=== PATIENT | female | born 1935 | race Caucasian/White ===

== ENCOUNTER 2016-07-06 20:06 | Emergency (ER) | payer MEDICARE, MEDICAID ==
[~2016-07-06] VITALS: Ht 152.4 cm; Wt 95.5 kg
[2016-07-06 20:19] VITALS: BP 141/69; PULSE 90; RESP 23; O2SAT 95
--- NOTE | 2016-07-06 20:27 | ED.REPORT ---
HPI-Chest Pain 40 and Over Date of Service Jul 06, 2016 ED Provider: JustynJulio Lorri An 81 year old female with a history of thyroid disease, diabetes, TIAx2, CAD, and GERD presents to the ED via EMS complaining of elevated heart rate and decreased oxygen level. Associated symptoms include chest pain, SOB, cough, headache, numbness and dizziness onset about an hour ago. She denies any diaphoresis, nausea, pain in arms, or leg swelling. She reports that her blood pressure was 118/63 at her last check-up. She has visited an ED in [place] multiple times where she was evaluated for similar symptoms, never being diagnosed with Afib. She claims that these symptoms seem to happen a lot. She recently broke her ankle, and [place] to the area in [place] under ak chin of doctor to live with family. She reports no recent fever or chills, but she is recovering from bronchitis. She has baseline diaphoresis at night, and baseline diarrhea. She reports no heart stents or other history of pertinent heart conditions. She does not take O2 at home, but is able to measure her oxygen level at home which can sometimes go to 92 . She had an a balloon angioplasty performed 20-25 years ago. She currently takes aspirin, but no other blood thinners and does not take any medication for GERD. She reports no allergies to any medications. She denies any history of COPD or asthma. She has an allergy to iodine. She reports that SOB has decreased a little bit since she has been in the ED. Nursing Notes Stated Complaint: CHEST PAIN Chief Complaint: Chest Pain Nursing Notes Reviewed: Yes Allergies: Coded Allergies: Fish Containing Products (Verified Allergy, Severe, 07/06/16) Penicillins (Verified Allergy, Severe, 07/06/16) iodine (Verified Allergy, Severe, 07/06/16) chlorpromazine (Verified Allergy, Intermediate, 07/06/16) morphine (Verified Allergy, Intermediate, 07/06/16) procaine (Verified Allergy, Intermediate, 07/06/16) aspirin (Verified Adverse Reaction, Unknown, GI upset, 07/06/16) General Time Seen by MD: 20:07 Chief Complaint Other (elevated heart rate) Hx Obtained From: Patient, EMS Arrived By: Ambulance Sudden in Onset?: Yes Onset Occurred: 1 - 4 hours ago Symptom Duration: Since onset Severity: Current: Mild Severity: Maximum: Moderate Recent Healthcare: No recent doctor visit Similar Sx Previous: Yes Past Medical History Past Medical History Dr. Campos is her PCP. thyroid disease. TIAx2 Reports: Coronary artery disease, Diabetes mellitus, Denies: COPD Past Surgical History none reported. Ambulatory Status Independent Review of Systems Review of Systems Note: elevated heart rate. decreased oxygen level. Denies pain in arms. Denies leg swelling. Respiratory: Reports: Non-productive cough, Shortness of breath Cardiovascular: Reports: Chest pain GI: Denies: Nausea Skin: Denies Diaphoresis Neurologic: Reports: Dizziness, Headache, Numbness Complete sys rev & neg: except as marked. Physical Exam Physical Exam Notes: Initial Vital Signs Vital Signs (First) Date Time Temp Pulse Resp B/P Pulse Ox O2 Delivery O2 Flow Rate FiO2 07/06/16 20:19 37.5 90 23 141/69 95 Room Air Initial VS: Reviewed General/Constitutional: Awake, Alert Respiratory / Chest: Atraumatic, Breath sounds NL, Breath sounds = bilat, No respiratory distress Cardiovascular: Heart rate NL, Regular rhythm, Heart sounds NL, No murmurs Abdomen: Atraumatic, Soft Neck: Atraumatic, Full range of motion Back: Atraumatic, Full range of motion Lower Extremity / Pelvis / MS: Atraumatic Patient has a boot on right lower extremity. No lower extremity edema. No tenderness, erythema, or warmth of lower extremities. Skin: Atraumatic, Warm, Dry Neurologic: Oriented X3, Speech NL Head / Eyes: Atraumatic, Normocephalic, PERRL, EOMI ENT: Atraumatic, Mucous membranes moist Upper Extremity / MS: Atraumatic, Full range of motion Wrist / Hand: Atraumatic, Full range of motion No foot swelling, no tight bands, no erythema, no warmth. Interpretation & Diagnostics Lab Results Interpretation Result Diagram: 07/06/16202407/06/162024 Test 07/06/16 20:25 07/06/16 22:30 White Blood Count 6.7th/mm3 (3.8-10.1) Red Blood Count 4.10mil/mm3 (3.90-5.20) Hemoglobin 11.7g/dL (12.0-15.6) Hematocrit 36.0% (35.0-46.0) Mean Corpuscular Volume 87.8fL (81-100) Mean Corpuscular Hemoglobin 28.5pg (27.0-35.0) Mean Corpuscular Hemoglobin Concent 32.5% (32.0-37.0) Red Cell Distribution Width 14.9% (12.3-15.4) Platelet Count 206bil/L (150-400) Neutrophils (%) (Auto) 56.6% (40-74) Lymphocytes (%) (Auto) 30.9% (14-46) Monocytes (%) (Auto) 9.6% (4-12) Eosinophils (%) (Auto) 2.7% (0-5) Basophils (%) (Auto) 0.1% (0-3) D-Dimer 2.6mg/L (<0.50) Hold Blue Top Tube Received (Received) Sodium Level 138mEq/L (134-144) Potassium Level 3.7mEq/L (3.5-5.2) Chloride Level 102mEq/L (97-108) Carbon Dioxide Level 20mmol/L (18-29) Blood Urea Nitrogen 21mg/dL (8-27) Creatinine 1.03mg/dL (0.57-1.00) Estimat Glomerular Filtration Rate 73mL/min (>59) Glucose Level 213mg/dL (60-99) Calcium Level 8.8mg/dL (8.5-10.1) Magnesium Level 1.6mg/dL (1.6-2.6) Total Bilirubin 0.3mg/dL (0.0-1.2) Aspartate Amino Transf (AST/SGOT) 14U/L (0-50) Alanine Aminotransferase (ALT/SGPT) 9U/L (0-32) Alkaline Phosphatase 55U/L (25-165) Total Protein 6.3g/dL (6.4-8.4) Albumin 3.5g/dL (3.4-5.0) Hold [place] Top Tube Received (Received) Troponin T 0.010ug/L (0.0-0.011) ECG Interpretation ECG Interpretation: Rate is 93. Sinus rhythm. Prolonged WA interval. LVH. Anterior P waves. No ST changes. Time: 20:22 Interpreted by: ED physician Re-Eval/Medical Decision Source of Hx: Old records, EMS Time of Eval: 23:22 Re-Evaluation/Progress Note: Rechecked patient. Explained test results, diagnosis and plan for discharge. Patient understands and agrees with the plan. Counseled Regarding: Diagnosis, Lab results, Need for follow-up, When/why to return to ED Discharge & Departure Primary Impression: Chest pain Chest pain type: unspecified Qualified Code: R07.9 - Chest pain, unspecified Ruled Out: Acute coronary syndrome, Pneumonia Disposition: Home Discharge Condition All VS Reviewed: Yes Condition: Stable Patient Instructions: Chest Pain (ED) Additional Instructions: Thank you for an trusting us with your care. Your emergency room evaluation today included an interview, physical exam, EKG, labs, and x-ray. There were no dangerous findings identified. You have not had a heart attack tonight. I do not see any evidence of lung infection or pneumonia. Your oxygen is normal and your heart has been normal on our monitors during your entire ER visit. I would like you to follow up with your primary care provider within the next week or two for reevaluation. I would recommend a stress test as an outpatient to look further at your heart given your diabetes and heart history. Please return to the ER if you develop any new or worsening symptoms Referrals: Wellington Campos DO (PCP) Nu Attestation Portions of this note were transcribed by Randolph Welch. I, Dr. Alejandra personally performed the history, physical exam and medical decision-making; I reviewed and confirmed the accuracy of the information in the transcribed note. Signed by: Nu Caballero, 07/06/2016 2327. copies to: Wellington Campos Gary R DO Jul 06, 2016 20:27 Randolph Welch Jul 06, 2016 21:26
[2016-07-06 20:35] LABS: BASOPHILS % (AUTO) 0.1 % (0-3); EOSINOPHILS % (AUTO) 2.7 % (0-5); MONOCYTES % (AUTO) 9.6 % (4-12); Mean Corpuscular Hemoglobin 28.5 pg (27.0-35.0); Mean Corpuscular Volume 87.8 fL (81-100); NEUTROPHILS % (AUTO) 56.6 % (40-74); Platelet Count 206 bil/L (150-400)
[2016-07-06 21:02] LABS: TROPONIN T < 0.010 ug/L (0.0-0.011)
[2016-07-06 21:11] LABS: Magnesium 1.6 mg/dL (1.6-2.6)
--- NOTE | 2016-07-06 21:18 | DRSVH ---
PROCEDURE: X-RAY CHEST ONE VIEW, PORTABLE ([id number]) INDICATIONS: chest pain TECHNIQUE: One view of the chest was acquired. COMPARISON: None. FINDINGS: Surgical changes and devices: None. Lungs and pleura: No pleural effusions or pneumothorax. Lungs are clear. Mediastinum: Mediastinal contours appear normal. Heart size is normal. Bones and chest wall: No suspicious bony lesions. Overlying soft tissues appear unremarkable. IMPRESSION: No acute disease Dictated by: Chemo Barrientos M.D. on 07/06/2016 at 21:16 Approved by: Chemo Barrientos M.D. on 07/06/2016 at 21:16
[2016-07-06 22:28] VITALS: BP 125/64; PULSE 79; RESP 18; O2SAT 97
[2016-07-07 00:03] VITALS: BP 134/54; PULSE 59; O2SAT 94
== END 2016-07-07 00:04 | disposition home or self-care (01) ==
LOC: SED 20:06
DX: R07.9 Chest pain, unspecified (principal); R06.02 Shortness of breath; R05 Cough; R51 Headache; R42 Dizziness and giddiness; R20.2 Paresthesia of skin; E07.9 Disorder of thyroid, unspecified; E11.9 Type 2 diabetes mellitus without complications; I25.10 Atherosclerotic heart disease of native coronary artery without angina pectoris; K21.9 Gastro-esophageal reflux disease without esophagitis; Z87.891 Personal history of nicotine dependence; Z86.73 Personal history of transient ischemic attack (TIA), and cerebral infarction without residual deficits; Z98.61 Coronary angioplasty status; Z79.82 Long term (current) use of aspirin; Z88.0 Allergy status to penicillin; Z91.041 Radiographic dye allergy status; Z88.8 Allergy status to other drugs, medicaments and biological substances; Z88.5 Allergy status to narcotic agent; Z88.6 Allergy status to analgesic agent; Z88.4 Allergy status to anesthetic agent

== ENCOUNTER 2016-07-21 10:15 | Inpatient (IN) | payer MEDICARE, MEDICAID ==
[~2016-07-21] VITALS: Ht 171.4 cm; Wt 101.9 kg
[2016-07-21] VITALS (12 sets, daily range): BP systolic 105–139; BP diastolic 46–81; PULSE 49–82; RESP 8–20; O2SAT 94–100
--- NOTE | 2016-07-21 10:22 | ED.REPORT ---
HPI-Syncope Date of Service Jul 21, 2016 ED Provider: Julio Alejandra DO An 81 year old female with a history of diabetes mellitus, CAD, TIA (x2) and thyroid disease presents to the ED via EMS after a syncopal episode that occurred just prior to arrival. EMS reports that the patient had a syncopal episode while on the toilet experiencing an episode of diarrhea. Patient recently experienced a similar syncopal episode on 06/06 that resulted in a right ankle fracture. She states that she has approx. 1 syncopal episode per month. She recently completed a round of antibiotics for a UTI. Associated symptoms include nausea, lightheadedness, dizziness, SOB and diaphoresis. Patient denies complete LOC. She denies any chest pain, vomiting, abdominal pain or melena. Nursing Notes Stated Complaint: SYNCOPE Nursing Notes Reviewed: Yes Allergies: Coded Allergies: Fish Containing Products (Verified Allergy, Severe, 07/06/16) Penicillins (Verified Allergy, Severe, 07/06/16) iodine (Verified Allergy, Severe, 07/06/16) chlorpromazine (Verified Allergy, Intermediate, 07/06/16) morphine (Verified Allergy, Intermediate, 07/06/16) procaine (Verified Allergy, Intermediate, 07/06/16) aspirin (Verified Adverse Reaction, Unknown, GI upset, 07/06/16) Scheduled Brimonidine Tartrate (Alphagan P) 5 Ml Drops 5 ML OP TID Hydrochlorothiazide (Hydrochlorothiazide) 25 Mg Tablet 25 MG PO DAILY Latanoprost (Latanoprost) 2.5 Ml Drops 1 GTT OP HS Levothyroxine (Tirosint) 50 Mcg Capsule 50 MCG PO DAILY Metformin (Metformin) 500 Mg Tablet 500 MG PO BID Oxybutynin Chloride ER (Oxybutynin Chloride ER) 15 Mg Tab.er.24 15 MG PO DAILY Simvastatin (Simvastatin) 40 Mg Tablet 40 MG PO HS Scheduled PRN Nitroglycerin SL (Nitroglycerin SL) 0.4 Mg Tab.subl 0.4 MG SL Q5MIN PRN PRN For Chest Pain Miscellaneous Medications Cholecalciferol (Vitamin D3) (Vitamin D3) 1,000 Unit Tab.chew 1,000 UNIT PO General Time Seen by Provider: 10:22 Chief Complaint Other (Syncope) Syncope Description: Same as prior, Frequent recent episodes Hx Obtained From: Patient, EMS Arrived By: Ambulance Onset Occurred: Just prior to arrival Symptom Duration: 1 - 15 minutes Progression Since Onset: Gradually improving Past Medical History Past Medical History Notes: PCP: Dr. Campos Past Medical History Thyroid disease. 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 Physical Exam Initial Vital Signs Vital Signs (First) Date Time Temp Pulse Resp B/P Pulse Ox O2 Delivery O2 Flow Rate FiO2 07/21/16 10:33 36.3 57 15 117/46 99 Room Air Initial VS: Reviewed Neck: Supple, Non-tender, Full range of motion Upper Extremities: Vascular intact, Neuro intact, No swelling, No tenderness Skin: Warm, Dry, No cyanosis Psychiatric: Mood/affect normal, Behavior normal, Normal thought content General/Constitutional: Awake Respiratory / Chest: Atraumatic, Breath sounds NL, Breath sounds = bilat, No respiratory distress Cardiovascular: Heart rate NL, Regular rhythm, Heart sounds NL, No murmurs Lower Extremity / Pelvis / MS: Atraumatic, No swelling, Neurologic intact, Vascular intact, No edema LOWER EXTREMITIES: No skin breakdown No rash Head / Eyes: Atraumatic, Normocephalic HEAD/EYES: Oval shaped pupil on right Left pupil normal ENT: Atraumatic, Airway patent, Mucous membranes moist Abdomen: Atraumatic, Soft, Non-tender Interpretation & Diagnostics PREVIOUS RECORDS ECHO (06/07/2016) EF 65-70% IMPRESSION: Normal adult echo w/o obvious cause for pt syncope. There is mild mitral, tricuspid, and pulmonic regurgitation. No interval change between the study and the prior study. hypotension Carotid Doppler (06/06/2016) IMPRESSION: Mild arthrosclerotic plaque in both bulbs No hemodynamically significant stenosis Dx: UTI (06/06/2016) CT Bladder (indicated-hematuria) (03/18/16) IMPRESSION: lateral wall thickening suspicious for urothelial malignancy Stress Test (2014) KIRTI scan (03/22/15) No reversible ischemic changes Lab Results Interpretation Result Diagram: 07/21/16 1109 07/21/16 1109 Test 07/21/16 11:09 White Blood Count 9.3th/mm3 (3.8-10.1) Red Blood Count 3.96mil/mm3 (3.90-5.20) Hemoglobin 11.3g/dL (12.0-15.6) Hematocrit 35.3% (35.0-46.0) Mean Corpuscular Volume 89.1fL (81-100) Mean Corpuscular Hemoglobin 28.5pg (27.0-35.0) Mean Corpuscular Hemoglobin Concent 32.0% (32.0-37.0) Red Cell Distribution Width 14.9% (12.3-15.4) Platelet Count 182bil/L (150-400) Neutrophils (%) (Auto) 76.1% (40-74) Lymphocytes (%) (Auto) 14.7% (14-46) Monocytes (%) (Auto) 7.0% (4-12) Eosinophils (%) (Auto) 1.9% (0-5) Basophils (%) (Auto) 0.2% (0-3) Prothrombin Time 11.6sec (8.1-12.5) Prothromb Time International Ratio 1.08ratio D-Dimer 2.6mg/L (<0.50) Sodium Level 141mEq/L (134-144) Potassium Level 3.5mEq/L (3.5-5.2) Chloride Level 104mEq/L (97-108) Carbon Dioxide Level 20mmol/L (18-29) Blood Urea Nitrogen 30mg/dL (8-27) Creatinine 1.06mg/dL (0.57-1.00) Estimat Glomerular Filtration Rate 71mL/min (>59) Glucose Level 168mg/dL (60-99) Lactic Acid Level 2.2mmol/L (0.4-2.0) Calcium Level 9.1mg/dL (8.5-10.1) Magnesium Level 1.9mg/dL (1.6-2.6) Total Bilirubin 0.3mg/dL (0.0-1.2) Aspartate Amino Transf (AST/SGOT) 17U/L (0-50) Alanine Aminotransferase (ALT/SGPT) 13U/L (0-32) Alkaline Phosphatase 49U/L (25-165) Troponin T < 0.010ug/L (0.0-0.011) Total Protein 6.3g/dL (6.4-8.4) Albumin 3.4g/dL (3.4-5.0) Thyroid Stimulating Hormone (TSH) 1.460uIU/mL (0.450-4.500) ECG Interpretation ECG Interpretation: Sinus Rhythm Rate 55 bpm Inverted T waves in V4 and V5 New compared to 07/06/2016 Time: 11:00 Interpreted by: ED physician X-Ray Chest Interpretation Chest Xray Interpretation: IMPRESSION: No acute process. Dictated by: Matthew Marsh M.D. on 07/21/2016 at 11:15 Interpretation / Wet Read by: Interpret - Radiologist CT Head Interpretation IMPRESSION: 1. Sinusitis. 2. Volume loss and small vessel ischemic disease. 3. No acute intracranial abnormality. Dictated by: Matthew Marsh M.D. on 07/21/2016 at 11:36 Study: Head CT no contrast Interpretation / Wet Read by: Interpret - Radiologist Re-Eval/Medical Decision Med Decision/Clinical Course Old records are reviewed. EMS report 80 systolic BP and patient was given fluids Patient has remained bradycardic since arrival (40's) Lab results reveal an elevated D-Dimer 81-year-old female with a history of relatively well controlled diabetes, hypertension, coronary artery disease, TIAs, and recurrent syncope presents after syncopal episode while using the bathroom. She was seen in [place] on 06/06/16 and had a very extensive workup when she had a syncopal episode and broke her right ankle. Her workup included an echocardiogram that was normal with an EF of 65%, bilateral carotid Doppler that was negative. She had a CT of the abdomen and pelvis last year given her ongoing history of hematuria and was noted to have some bladder wall thickening concerning for bladder cancer. I saw her 2 weeks ago for a similar syncopal episode and after fluids she felt much better and was discharged home. Her pulse that time was in the 90s. Dehydration may be part of why she continues to have syncopal episodes. Today at presentation she has been bradycardic with a pulse in the 40s and 50s. Certainly bradycardia could be a cause for her syncopal episodes and patient has not had a Holter monitor in her workup. Dr. Amador was consulted with cardiology and will see the patient, I am grateful for her input. Given that she feels short of breath and has an elevated d dimer, I think a CT chest angiogram for pulmonary embolus should be considered especially in light of her recurrent syncope, and right lower extremity injury with boot. She does have a history of immobility. The scan could not be completed here as patient has a history of contrast allergy so she will need to be in premedicated prior to the scan. VQ scan could also be considered Re-Evaluation/Progress #1: Time of Eval: 12:24 Patient Status: Condition improved Re-Evaluation/Progress Note: Patient is rechecked. She is informed of her ED results and the recommendation to admit. All of the patient's daugter's questions are addressed. Patient agrees with plan to admit. Re-Evaluation/Progress #2: Time of Eval: 13:20 Patient Status: Condition improved Re-Evaluation/Progress Note: Further history is obtained. Family reports that the patient fully lost consciousness. She reportedly has a stress test scheduled for Friday. Consultation #1: Referral / Consult Name: Ben Alfredo MD Consulted With: Hospitalist Call Returned at: 13:19 Carrier Packer: Will see patient, Agrees with eval, Agrees with plan, Accepts admit Consultation #2: Referral / Consult Name: Keri Amador MD Consulted With: Cardiology Call Returned at: 12:55 Carrier Packer: Will see patient, Agrees with eval, Agrees with plan Note: Will consult on pt Counseled Regarding: Diagnosis, Lab results, Need for admission Discharge & Departure Impression: Primary Impression: Syncope Syncope type: unspecified Qualified Code: R55 - Syncope and collapse Additional Impressions: Symptomatic bradycardia Shortness of breath Hx of syncope Disposition: ADMITTED TO HOSPITAL Discharge Condition All VS Reviewed: Yes Condition: Stable Referrals: Wellington Campos DO (PCP) Nu Attestation Portions of this note were transcribed by Kristan Watters. I, Dr. Alejandra personally performed the history, physical exam and medical decision-making; I reviewed and confirmed the accuracy of the information in the transcribed note. Signed by: Nu Viveros, 07/21/16 2176. copies to: Wellington Campos Gary R DO Jul 21, 2016 10:22 KRISTAN WATTERS Jul 21, 2016 10:39
[2016-07-21] MEDS ORDERED: 0.9% Sodium Chloride 1,000 ML IV ONE (10:44)
--- NOTE | 2016-07-21 11:17 | DRSVH ---
PROCEDURE: X-RAY CHEST ONE VIEW, PORTABLE ([id number]) INDICATIONS: syncope TECHNIQUE: One view of the chest was acquired. COMPARISON: [facility], CR, XR CHEST 1VW (PORTABLE), 07/06/2016, 20:32. FINDINGS: Surgical changes and devices: None. Lungs and pleura: No pleural effusions or pneumothorax. Lungs are clear. Mediastinum: Mediastinal contours appear normal. Heart size is normal. Bones and chest wall: No suspicious bony lesions. Overlying soft tissues appear unremarkable. IMPRESSION: No acute process. Dictated by: Matthew Marsh M.D. on 07/21/2016 at 11:15 Approved by: Matthew Marsh M.D. on 07/21/2016 at 11:15
[2016-07-21 11:24] LABS: BASOPHILS % (AUTO) 0.2 % (0-3); EOSINOPHILS % (AUTO) 1.9 % (0-5); Mean Corpuscular Hemoglobin 28.5 pg (27.0-35.0); Mean Corpuscular Volume 89.1 fL (81-100); NEUTROPHILS % (AUTO) 76.1 % (40-74); Platelet Count 182 bil/L (150-400)
--- NOTE | 2016-07-21 11:39 | DRSVH ---
PROCEDURE: CT BRAIN WITHOUT CONTRAST ([id number]) INDICATIONS: Stroke TECHNIQUE: Noncontrast 4.5 mm thick angled axial sections acquired from the foramen magnum to the vertex, with c oronal reformats. COMPARISON: None. FINDINGS: Image quality: Excellent. CSF spaces: Basal cisterns are patent. No extra-axial fluid collections. The ventricles are symmet uday in size and shape. Brain: No intracranial bleeds or masses. There is cerebral volume loss for age, with resultant vent ricular and sulcal prominence. There are periventricular and deep white matter chronic small vessel ischemic changes. There is intracranial internal carotid artery atherosclerosis. Skull and face: Calvarium and visualized facial bones appear intact, without suspicious lesions. Sinuses: Severe left and mild right maxillary sinus mucosal thickening. Severe bilateral ethmoid air cell mucosal thickening. Severe right and mild left sphenoid sinus mucosal thickening. Mild left fron carlos sinus mucosal thickening. Mastoids clear. IMPRESSION: 1. Sinusitis. 2. Volume loss and small vessel ischemic disease. 3. No acute intracranial abnormality. Dictated by: Matthew Marsh M.D. on 07/21/2016 at 11:36 Approved by: Matthew Marsh M.D. on 07/21/2016 at 11:38
[2016-07-21 11:46] LABS: D-DIMER 2.6 mg/L (<0.50); INR 1.08 ratio
[2016-07-21 12:30] LABS: TROPONIN T < 0.010 ug/L (0.0-0.011)
[2016-07-21 12:31] LABS: Magnesium 1.9 mg/dL (1.6-2.6)
[2016-07-21] MEDS ORDERED: Ondansetron 2 mg/mL 2 mL Inj IVPUSH PRN (13:25)
[2016-07-21] MEDS ORDERED: Alum-Mag Hydrox-Simeth 30 mL Suspension PO PRN (13:25)
[2016-07-21] MEDS ORDERED: Polyethylene Glycol (PEG) 17 Gm Powder PO PRN (14:10)
--- NOTE | 2016-07-21 14:20 | NUR ---
Admission Pt admitted to [facility] room 3008. A/Ox3, reports feeling dizzy, and SOB. RA, IV SL. Pt assisted from gurney to bed by staff. No complains of pain. Oriented to call light, visiting hours and bathroom. Family at bedside. Call light with in reach.
[2016-07-21 15:21] LABS: APPEARANCE,URINE CLEAR (CLEAR,HAZY); COLOR,URINE YELLOW (YELLOW); OCCULT BLOOD,URINE MODERATE (NEGATIVE); PH,URINE 5.5 (5.0-8.0); UROBILINOGEN,URINE NORMAL (NORMAL)
--- NOTE | 2016-07-21 16:56 | PCM.HPMED ---
Subjective Date of Service Jul 21, 2016 Primary Provider: Admitting Physician: Ben Alfredo MD Primary Care Physician: Wellington Campos DO Attending Physician: Ben Alfredo MD Chief Complaint: syncopal episode History of Present Illness: 81 year old female with a history of diabetes mellitus, CAD, TIA, hypothyroidism presented to the ED after a syncopal episode that occurred just prior to arrival. As per EMS reports, the patient had a syncopal episode while on the toilet experiencing an episode of diarrhea. She had experienced a similar syncopal episode on 06/06 that resulted in a right ankle fracture. She states that she has approx. 1 syncopal episode per month. She recently completed a round of antibiotics for a UTI. She also complaints of nausea, lightheadedness, dizziness, SOB and diaphoresis. Patient denies complete LOC. She denies any chest pain, vomiting, abdominal pain or melena. Vital signs on arrival to ER were as follows: T: 36.3, HR: 57, RR: 15, BP: 117/46, SpO2: 99% on RA Allergies Coded Allergies: Fish Containing Products (Verified Allergy, Severe, 07/06/16) Penicillins (Verified Allergy, Severe, 07/06/16) iodine (Verified Allergy, Severe, 07/06/16) chlorpromazine (Verified Allergy, Intermediate, 07/06/16) morphine (Verified Allergy, Intermediate, 07/06/16) procaine (Verified Allergy, Intermediate, 07/06/16) atorvastatin (Verified Adverse Reaction, Severe, 07/24/16) Severe myalgia aspirin (Verified Adverse Reaction, Unknown, GI upset, 07/06/16) PMH - Hypothyroidism - TIA - GERD - Coronary artery disease, - Diabetes mellitus Surgical History - Cataract surgery Social History Hx Alcohol Use: No Hx Substance Use: No Smoking Status: Unknown if Ever Smoker Exam Vital Signs Vital Sign - Last Date Time Temp Pulse Resp B/P Pulse Ox O2 Delivery O2 Flow Rate FiO2 07/21/16 12:04 67 20 116/57 97 Room Air 07/21/16 10:33 36.3 Exam General: Not in acute distress, Awake Neck: Supple, Non-tender, Full range of motion Respiratory: Breath sounds bilaterally equal, Normal respiratory effort Cardiovascular: Regular rate and rhythm, No murmur Lower Extremity / Pelvis / MS: Atraumatic, No swelling, Neurologic intact, Vascular intact, No edema Upper Extremities: Vascular intact, Neuro intact, No swelling, No tenderness Skin: Warm, Dry, No cyanosis Psychiatric: Mood/affect normal, Behavior normal, Normal thought content Lab and Diagnostics Result Diagram: 07/21/16 1109 07/21/16 1109 Additional Diagnostics: ECHO (06/07/2016) EF 65-70% IMPRESSION: Normal adult echo w/o obvious cause for pt syncope. There is mild mitral, tricuspid, and pulmonic regurgitation. No interval change between the study and the prior study. hypotension Carotid Doppler (06/06/2016) IMPRESSION: Mild arthrosclerotic plaque in both bulbs No hemodynamically significant stenosis Dx: UTI (06/06/2016) CT Bladder (indicated-hematuria) (03/18/16) IMPRESSION: lateral wall thickening suspicious for urothelial malignancy Stress Test (2014) KIRTI scan (03/22/15) No reversible ischemic changes Assessment & Plan 81 year old female presented with recurrent syncopal episodes. Syncope - Vasovagal vs. cardiogenic - She had extensive work up in recent past. - ECHO (06/07/2016): EF 65-70% IMPRESSION: Normal adult echo w/o obvious cause for pt syncope. There is mild mitral, tricuspid, and pulmonic regurgitation. No interval change between the study and the prior study. - Carotid Doppler (06/06/2016 IMPRESSION: Mild arthrosclerotic plaque in both bulbs No hemodynamically significant stenosis - Will continue to monitor closely Status: To be admitted as observation status, as duration of hospital stay will be less than two midnights. Pain Evaluation: Adequate Pain Control GI Prophylaxis: H2 stephen VTE Prophylaxis: Sub-Q Heparin (Unfractionated) Resuscitation Status: CPR: Attempt Resuscitation Ben Alfredo MD Jul 21, 2016 14:13 Sukhdev Henderson MD Aug 21, 2016 07:38
[2016-07-21] MEDS ORDERED: LEVO50CA2 PO (17:42)
[2016-07-21] MEDS ORDERED: NITR0.4T6 SL (17:42)
[2016-07-21] MEDS ORDERED: HYDR25TA4 PO (17:42)
[2016-07-21] MEDS ORDERED: METF500T4 PO (17:42)
[2016-07-21] MEDS ORDERED: OXYB15TA PO (17:42)
[2016-07-21] MEDS ORDERED: SIMV40TA5 PO (17:42)
[2016-07-21] MEDS ORDERED: BRIM5DRO2 OP (17:46)
[2016-07-21] MEDS ORDERED: CHOL10008 PO (17:46)
[2016-07-21] MEDS ORDERED: LATA2.5D6 LEFT_EYE (17:46)
--- NOTE | 2016-07-21 17:48 | NUR ---
Pt sleeping, RICHARD explained to pt's daughter Daniela who is at bedside. Richadr signed by daughter. Copy of RICHARD and Medicare self administered medication information given to Daniela.
[2016-07-21] MEDS ORDERED: Glucose 40% Oral Gel 15 Gm Tube PO PRN (17:55)
[2016-07-21] MEDS: 0.9% Sodium Chloride 1,000 ML IV SCH (18:17)
[2016-07-21] MEDS: Heparin 5,000 Unit/mL Inj SUBQ SCH (21:16)
[2016-07-21] MEDS: Insulin LISPRO 300 Unit/3 mL Inj SUBQ SCH (22:00)
[2016-07-22] VITALS (8 sets, daily range): BP systolic 125–145; BP diastolic 64–81; PULSE 46–65; RESP 18–20; O2SAT 93–100
--- NOTE | 2016-07-22 00:59 | NUR ---
Chest pain Pt complained of chest pain, raised HOB, gave 2L O2. Vitals WNL, tele at sinus 80. EKG done with normal results. Paged night hospitalist with information. Pt said pain was going away, did not want nitro. Will continue to monitor.
[2016-07-22] MEDS: 0.9% Sodium Chloride 1,000 ML IV SCH ×2 (03:59→23:55)
[2016-07-22 06:47] LABS: BASOPHILS % (AUTO) 0.1 % (0-3); EOSINOPHILS % (AUTO) 2.7 % (0-5); MONOCYTES % (AUTO) 7.1 % (4-12); Mean Corpuscular Hemoglobin 29.2 pg (27.0-35.0); Mean Corpuscular Volume 89.7 fL (81-100); NEUTROPHILS % (AUTO) 62.4 % (40-74); Platelet Count 138 bil/L (150-400)
[2016-07-22] MEDS: Insulin LISPRO 300 Unit/3 mL Inj SUBQ SCH ×4 (07:51→21:57)
[2016-07-22] MEDS: Pantoprazole 20 mg ER24 Tablet PO SCH (08:00)
[2016-07-22] MEDS: Heparin 5,000 Unit/mL Inj SUBQ SCH ×2 (08:02→19:51)
[2016-07-22] MEDS ORDERED: POTA99TA21 PO (09:22)
[2016-07-22] MEDS ORDERED: diphenhydrAMINE 25 mg Capsule PO ONE (10:55)
[2016-07-22 11:55] LABS: APPEARANCE,URINE SLIGHTLY CLOUDY (CLEAR,HAZY); COLOR,URINE STRAW (YELLOW); PH,URINE 5.5 (5.0-8.0)
[2016-07-22 11:56] LABS: OCCULT BLOOD,URINE LARGE (NEGATIVE); UROBILINOGEN,URINE NORMAL (NORMAL)
[2016-07-22] MEDS: predniSONE 20 mg Tablet PO SCH ×2 (12:13→18:15)
--- NOTE | 2016-07-22 12:22 | DRSVH ---
[facility] [address] [place] [address] Echocardiogram Report Name: SERGIO BAUER Study Date: 07/22/2016 Height: 68 in Hospital Exam Location: [facility] Weight: 214 lb Gender: Female BSA: 2.1 m2 : 1935 Age: 81 yrs BP: 133/73 mmHg Reason For Study: Syncope Ordering Physician: Performed By: [facility] Staff Interpretation Summary The left ventricle is normal in size. Left ventricular systolic function is normal without focal wall motion abnormalities. The ejection fraction is estimated to be 65-70%. The right ventricle is mildly dilated. Right ventricular systolic function is at the lower limits of normal. Right ventricular systolic pressure is estimated to be 22 mmHg plus the clinically estimated CVP which cannot be estimated on this exam. The interatrial septum is intact with no evidence for an atrial septal defect. Procedure: A two-dimensional transthoracic echocardiogram with color flow and Doppler was performed in limited views only. Comparison is made with the echocardiogram of 06/07/2016. The patient was in normal sinus rhythm during the exam. Left Ventricle: The left ventricle is normal in size. Left ventricular wall thickness is at the upper limits of normal. Left ventricular systolic function is normal without focal wall motion abnormalities. The ejection fraction is estimated to be 65-70%. Assessment of diastolic parameters indicates normal left ventricular diastolic function and normal filling pressures. Right Ventricle: The right ventricle is mildly dilated. Right ventricular systolic function is at the lower limits of normal. Atria: The interatrial septum is intact with no evidence for an atrial septal defect. Mitral Valve: There is trace mitral regurgitation. Aortic Valve: The aortic valve is trileaflet. Tricuspid Valve: There is mild tricuspid regurgitation. Right ventricular systolic pressure is estimated to be 22 mmHg plus the clinically estimated CVP which cannot be estimated on this exam. Pulmonic Valve: There is a trace or physiologic amount of pulmonic regurgitation. Great Vessels: The aortic root is normal size. The aortic arch is at the upper limits of normal in size. Pericardium/ Pleura There is no pericardial effusion. There is no pleural effusion. MMode/2D Measurements & Calculations LVIDd Ao root diam LV figueroa. diameter/BSA LV sys. diameter/BSA : 4.9 cm (cm/m^2): 2.3 (cm/m^2): 1.4 LVIDs asc Aorta Diam : 2.9 cm FS: 39.9 % IVSd : 1.cm LVPWd : 0.8cm Doppler Measurements & Calculations MV E max ramin MV E/A: 1.2 TR max ramin MV dec time : 75.8 cm/sec Med Peak E' Ramin : 232.9 cm/sec : 0.19 sec MV A max ramin TR max PG : 60.8 cm/sec E/E' med: 12.2 : 21.7 mmHg Lat Peak E' Ramin E/E' lat: 11.3 E/e' average: 11.8 Reading Physician:ALIX
--- NOTE | 2016-07-22 14:14 | CONS ---
[address] [address] CONSULTATION REPORT PATIENT: SERGIO BAUER : 1935 MR#: [id number] ADMIT: 07/21/2016 JOB ID: [id number] DATE OF SERVICE: 07/22/2016 CHIEF COMPLAINT: Syncope. HISTORY OF PRESENT ILLNESS: The patient is a delightful 82-year-old woman with diabetes, TIA, hypothyroidism, on appropriate thyroid therapy. She has been having intermittent syncope for the past five years. Most recent episode occurred June 14 which resulted, unfortunately, in right ankle fracture. At that time, she was living independently in [place], but after her injury, her family made the decision to help the patient relocate and be closer to her daughter, Daniela Bautista, on [place]. The patient was doing okay, but unfortunately last night presented to the emergency department complaining of once again syncope. She was on the toilet, she was having diarrhea, and then she blacked out and lost consciousness. She says she averages about one syncopal episode per month. The syncope is associated with nausea, lightheadedness, dizziness, shortness of breath, and diaphoresis. She says she almost passed out but not completely. She denies chest pain, vomiting, abdominal pain, or melena. EKG in the emergency department actually shows normal sinus rhythm, normal axis. No left ventricular hypertrophy. Narrow QRS complexes. Heart rate was 55 beats per minute. She had T-wave inversion in leads V3, V4, V5, V6, two in aVF, but telemetry strips when she first arrived to the emergency department demonstrated sinus bradycardia with a rate fluctuating between 45 up to 49 beats per minute. QRS complex remained, and CT interval was normal. The patient has been evaluated by a wood cut engraver in [place] for her syncopal event. Her workup in [place] included echocardiogram June 14 which was normal. She also had a reassuring pharmacologic stress test with myocardial perfusion imaging in February 2015. Her workup additionally included thyroid testing, most recently July 21, 2016 which was normal, and electrolyte testing July 22, 2016, which was normal. Of note, the patient was seen in the emergency department July 06 complaining of a feeling of elevated heart rate, and on telemetry overnight she had one brief episode of irregular narrow complex tachycardia with warmup effect consistent with atrial tachycardia. This occurred at about 8:00 p.m. yesterday, presumably while she was awake. There were no associated palpitations, but maybe the episode was not long enough for her to actually experience them. The patient is not on any AV valdez blockers. PAST MEDICAL HISTORY: 1. Diabetes - controlled. Her most recent hemoglobin A1c was 7.8%. She is treated with oral hypoglycemics. 2. Hyperlipidemia - on simvastatin 40 mg daily. Most recent lipids June 17, 2016, in outpatient setting shows total cholesterol 132, triglycerides 169, HDL 48, LDL 52. 3. TIA. 4. Hypothyroidism - Most recent TSH checked July 21, 2016 was normal. 5. History of balloon angioplasty 20 years ago in [place]. 6. Ankle fracture. SOCIAL HISTORY: Patient lives with her daughter, Daniela Bautista, on [place]. She is a former smoker. She has 36 pack-year history of smoking, and she quit in 1979. FAMILY HISTORY: Father at age 66. Mother at age 68 due to heart disease. ALLERGIES: 1. IODINE which causes a severe allergic reaction. I did not ask her what the nature of the reaction is. 2. MORPHINE. 3. PROCAINE. 4. ASPIRIN. 5. PENICILLIN. 6. FISH-CONTAINING PRODUCTS. HOME MEDICATIONS: 1. Hydrochlorothiazide 25 mg daily. 2. Metformin 500 mg daily. 3. Simvastatin 40 mg daily. 4. Tirosint 15 mcg daily. 5. Oxybutynin 15 mg daily. 6. Eyedrops including Alphagan. 7. Latanoprost. 8. P.r.n. nitroglycerin. 9. Vitamin D supplement. REVIEW OF SYSTEMS: No bright red blood per rectum. No hematuria. No chest pain. Recently, she did have syncope and near syncope. Otherwise, 10-point review of systems is negative. PHYSICAL EXAMINATION: Well-nourished woman in no apparent distress. Eyes: No scleral icterus. Heart: Normal S1, S2. No murmurs. Lungs: Clear to auscultation anteriorly. Abdomen is soft. Positive bowel sounds. No hepatosplenomegaly. Extremities: Warm and well perfused. No clubbing, cyanosis, or edema. Skin: No rashes or lesions. EKG shows normal sinus rhythm 55 beats per minute. T-wave inversion V3, V4, V5, V6, and 2 and aVF which are nonspecific. LABORATORIES: Reviewed. Telemetry reviewed overnight shows heart rate fluctuating between 47 up to 99 beats per minute with a brief episode of atrial tachycardia at 8:17 a.m. with a cycle length of 470 msec and warmup phenomenon. ASSESSMENT AND PLAN: An 81-year-old woman with sick sinus syndrome and what appears to be intermittent atrial tachycardia. It is possible that she occasionally has longer episodes than what has been documented so far on telemetry, and maybe that is why she is experiencing intermittent chest discomfort. Other causes of possible chest discomfort include ischemia. However, her troponin measurements so far while she was here last time showed no evidence of heart attack. I discussed the case with Dr. Concepcion, and his recommendation is to go ahead and proceed with permanent pacemaker implant. Of course, this procedure is complicated by her iodinated contrast allergy, and she will need to be premedicated, so I think we should go ahead and treat this patient and anticipate possible device implant tomorrow. I will discuss with Dr. Concepcion in a little bit more detail what type of premedication regimen he would recommend for her. This patient has h/o recent travel and ankle fracture. Recommend pre-procedure echocardiogram to evaluate for any evidence of structural heart disease. Thank you very much for the opportunity to evaluate her. SANCHEZ
--- NOTE | 2016-07-22 14:55 | PCM.PNMED ---
Subjective Date of Service Jul 22, 2016 Subjective denies any new issues/complaints Exam Vital Signs Vital Sign - Last Date Time Temp Pulse Resp B/P Pulse Ox O2 Delivery O2 Flow Rate FiO2 07/22/16 13:34 36.5 65 18 126/64 99 Nasal Cannula 2.00 Intake and Output 07/21/16 07/21/16 07/22/16 Cumulative From/Thru 15:00 23:00 07:00 07/21/16 10:33 - 07/22/16 06:30 Intake Total 1000 ml 450 ml 1333 ml 2783 ml Output Total 400 ml 470 ml 870 ml Balance 1000 ml 50 ml 863 ml 1913 ml Intake Oral 450 ml 150 ml 600 ml IV Total 1000 ml 1183 ml 2183 ml Output Urine Total 400 ml 470 ml 870 ml General: Alert, Cooperative, No Acute Distress Eyes: Scleral Anicteric Mouth: Mucous Membr Moist/[place] Neck: Supple Chest & Lungs: Chest Wall Normal, Clear to auscultation & percussion Cardiovascular: Regular Rate/Rhythm Abdomen: Non-distended, Normoactive bowel tones, Soft Extremities: No cyanosis/clubbing/edma bilat Neurological: Grossly Neurologically Intact, Normal Speech IVs and Medications Medications Reviewed: Medications were reviewed in detail Lab and Diagnostics Result Diagram: 07/22/16 0630 07/22/16 0530 Additional Diagnostics ECHO (06/07/2016) EF 65-70% IMPRESSION: Normal adult echo w/o obvious cause for pt syncope. There is mild mitral, tricuspid, and pulmonic regurgitation. No interval change between the study and the prior study. hypotension Carotid Doppler (06/06/2016) IMPRESSION: Mild arthrosclerotic plaque in both bulbs No hemodynamically significant stenosis Dx: UTI (06/06/2016) CT Bladder (indicated-hematuria) (03/18/16) IMPRESSION: lateral wall thickening suspicious for urothelial malignancy Stress Test (2014) KIRTI scan (03/22/15) No reversible ischemic changes Assessment & Plan 81 year old female presented with recurrent syncopal episodes. # Acute syncope, present on admission. - Vasovagal vs. cardiogenic vs other etiology and exacerbated by underlying acute dehydration - She had extensive work up in recent past. - Limited Echo 07/22 is unremarkable with intact EF - Carotid Doppler (06/06/2016): "Mild arthrosclerotic plaque in both bulbs No hemodynamically significant stenosis" - further management as noted below # Acute chest pain/discomfort. poa. - ACS ruled out with negative Trop - appreciate cardiology consult. will f/u w/ recs - given elevated DDimer will rule out PE by CTA (will need pretreatment given history of allergy to iodine) # sick sinus syndrome and what appears to be intermittent atrial tachycardia. - appreciate cardiology consult - recommendation is to proceed with permanent pacemaker implant. - will f/u w/ cardiology recs # Acute dehydration, poa - improved with IVF # Acute kidney injury. present on admission - Likely due to underlying dehydration - resolved with IVF # Acute lactic acidosis, present on admission. likely due to underlying dehydration - resolved with IVF # Diabetes - controlled. - most recent hemoglobin A1c was 7.8%. - hold oral hypoglycemics. - cover with ISS while inpatient # Hyperlipidemia - c/w Simvastatin 40 mg daily. # Reported history of TIA. - not on ASA due to reported allergy # Hypothyroidism - Most recent TSH checked July 21, 2016 was normal. - c/w home dose Synthroid # History of balloon angioplasty 20 years ago in [place]. # Recent Ankle fracture. poa and ongoing - c/w supportive care - PT consult - further f/u w/ Ortho as outpatient. Dispo: 2-3 days pending above workup and treatment GI Prophylaxis: H2 stephen VTE Prophylaxis: Sub-Q Heparin (Unfractionated) Resuscitation Status: CPR: Attempt Resuscitation Time spent 35 min Johnathan Agarwal Jul 22, 2016 14:54
--- NOTE | 2016-07-22 15:10 | NUR ---
Evaluation completed. Please go to "Notes" then click on "Assessments and Notes" (bottom left corner of screen). Then select appropriate discipline tab on top of screen.
--- NOTE | 2016-07-22 15:38 | NUR ---
Social Work - Initial Assessment Data: Pt is and 83 y/o female who was admitted on 07/21/16 for syncope, symptomatic bradycardia, SOB. Insurance is Medicare and [facility] Supplemental and PCP is Wellington Campos MD. EMR reviewed. KRISHNA met with pt and daughter Daniela at bedside to discuss discharge planning. KRISHNA role explained. Pt was oriented x3. Pt resides at home with daughter in a single level home with ramp to enter. Pt remains independent with ADLs. Pt uses a walker and wheelchair at baseline and does not drive. Pt has no SNF history and is currently receiving HH services through [facility]. Pt states she has not completed DPOA/Advanced Directive paperwork. Information was provided and SW recommended she complete and return to the hospital. Pt has no terminal block assembler care or VA benefits. Per PT note pt is scheduled to be fitted with a pacemaker tomorrow and PT will follow up after. Pt to continue with HH services with [facility] following discharge. KRISHNA contacted [facility] to inform them of this hospitalization. Pt's family to provide transport home at discharge. KRISHNA provided phone number and plan on white board in room. KRISHNA will continue to follow. Assessment: Pt who would benefit from continued HH services. Plan: Pt to return home via daughter and resume HH services. KRISHNA will continue to follow DAMARIS Winkler Addendum: 07/22/16 at 1607 by ADARSH CABA SS Amended: Links added.
--- NOTE | 2016-07-22 15:50 | NUR ---
Discharge Pt discharged at 1545. She was given discharge instructions and instructions for follow up care. She confirmed understanding of these instructions. An appointment was made for her with her primary care doctor for follow up. Her prescriptions were electronically faxed to the patient's home pharmacy. She confirmed understanding of these instructions. She was given an oxygen tank to take home with her. She left in possession of all of her belongings. She was brought to the exit by unit staff where her granddaughter would be driving her home. Addendum: 07/22/16 at 1721 by DAI VELAZQUEZ RN NOTE ENTERED IN ERROR- please disregard.
--- NOTE | 2016-07-22 17:59 | NUR ---
Mobility Pt has been transferring herself to the bedside commode as a standby assist. Not able to bear weight on her R foot secondary to an ankle fracture, she is currently wearing a boot on that foot. She reports dizziness when she gets up. Continue to standby for assistance as needed and encourage patient to call staff before getting out of bed.
[2016-07-23] VITALS (8 sets, daily range): BP systolic 121–158; BP diastolic 56–77; PULSE 41–56; RESP 18–20; O2SAT 95–98
[2016-07-23] MEDS: predniSONE 20 mg Tablet PO SCH (00:15)
[2016-07-23] MEDS ORDERED: diphenhydrAMINE 25 mg Capsule PO ONE (00:15)
[2016-07-23] MEDS: 0.9% Sodium Chloride 1,000 ML IV SCH ×3 (00:59→22:48)
--- NOTE | 2016-07-23 01:32 | NUR ---
CT Pt left room by WC to CT. Pt was alert and oriented x4.
[2016-07-23] MEDS ORDERED: Heparin 25K Unit/500mL 0.45 NS 25,000 UNIT in IV Premix 1 EACH IV SCH ×2 (02:25→12:05)
[2016-07-23] MEDS ORDERED: Heparin 5,000 Unit/mL Inj IVPUSH ONE (02:25)
--- NOTE | 2016-07-23 02:26 | PCM.PNMED ---
Subjective Date of Service Jul 23, 2016 Subjective Nurse called to report that CT chest tonight showed a Pulmonary embolism. Heparin drip started Dusty Farris MD Jul 23, 2016 02:26
[2016-07-23] MEDS ORDERED: Heparin Protocol Boluses IVPUSH PRN (02:30)
--- NOTE | 2016-07-23 02:52 | NUR ---
Transfer Pt transferred to [facility] due to bradycardia of 30's to 40's and new CT diagnosis of L sided multiple emboli. Dr informed and pt transfer. Accompanied pt to [facility] and gave report and tranfered all meds and chart to Apryl Nixon RN, pt was alert and oriented to new room.
[2016-07-23 07:55] LABS: EOSINOPHILS % (AUTO) 0 % (0-5)
[2016-07-23 08:00] LABS: BASOPHILS % (AUTO) 0.1 % (0-3); MONOCYTES % (AUTO) 1.9 % (4-12); Mean Corpuscular Hemoglobin 28.8 pg (27.0-35.0); Mean Corpuscular Volume 86.8 fL (81-100); NEUTROPHILS % (AUTO) 84.9 % (40-74)
--- NOTE | 2016-07-23 09:10 | DRSVH ---
PROCEDURE: CT ANGIO CHEST PULMONARY EMBOLISM ([id number]) INDICATIONS: syncope TECHNIQUE: After the administration of intravenous contrast, 2 mm thick sections acquired from the pulmonary api bhavna to the posterior costophrenic angles. 3-dimensional maximum intensity projection (MIP) coronal a nd sagittal reformats were then acquired through the thorax. For radiation dose reduction, the follo wing was used: automated exposure control, adjustment of mA and/or kV according to patient size. COMPARISON: None. FINDINGS: Image quality: Excellent. Pulmonary arteries: There are filling defects in the left lower lobe lobar and segmental arteries con sistent with pulmonary embolism. Pulmonary arteries are normal in size. Lungs and pleura: Lungs are clear. Trace left pleural effusion. Bibasilar atelectasis. No pneumothor ax. Central and peripheral airways are patent. Mediastinum: Heart size is normal, without pericardial effusion. No mediastinal or hilar adenopathy . Thoracic aorta is normal in caliber and enhancement. There is an aberrant right subclavian artery . Esophagus is normal in caliber, without hiatal hernia. Bones and chest wall: No suspicious bony lesions. Ribs and thoracic spine appear intact throughout. Thyroid gland is normal. No axillary or supraclavicular adenopathy. Abdomen: There is a 1.7 cm low density nodule in spleen. Trace amount of free fluid is seen around th e spleen. IMPRESSION: 1. Filling defects in the left lower lobe lobar and segmental arteries consistent with pulmonary embo li. 2. Trace left pleural effusion. 3. Aberrant right subclavian artery. 4. A 1.7 cm indeterminate low-density nodule in spleen. Ultrasound might be obtained for further eval uation. 5. A trace amount of free fluid in the left upper quadrant. No significant discrepancy with the maintenance technician 2nd shift radiology preliminary report. Please note incident fi ndings not mentioned in the preliminary report (Impression #4 and #5).. Dictated by: Timothy Hernández M.D. on 07/23/2016 at 8:59 Approved by: Timothy Hernández M.D. on 07/23/2016 at 9:08
[2016-07-23] MEDS: Pantoprazole 20 mg ER24 Tablet PO SCH (09:34)
[2016-07-23] MEDS: Insulin LISPRO 300 Unit/3 mL Inj SUBQ SCH ×4 (09:34→20:10)
--- NOTE | 2016-07-23 10:20 | NUR ---
Case Management: DIANDRA delivered and explained to pt. Original placed in chart. Copy left at bedside. Rosana Bae RN
[2016-07-23] MEDS ORDERED: Glucose 40% Oral Gel 15 Gm Tube PO PRN (11:50)
[2016-07-23] MEDS ORDERED: Heparin 5,000 Unit/mL Inj IVPUSH PRN (12:05)
[2016-07-23] MEDS ORDERED: DABI150C PO (12:05)
[2016-07-23] MEDS: Brimonidine 0.1% 5 mL Ophthalmic Solution AFFECT_EYE SCH ×2 (12:16→20:08)
[2016-07-23] MEDS: Sodium Chloride LOK Flush 10 mL Syringe IVFLUSH SCH ×2 (16:48→19:43)
--- NOTE | 2016-07-23 16:59 | NUR ---
spiritual care;pt request conversational visit. pt reflected on grief-- of 3 dtrs, and dtr in law in past 6 years. Most recent was weeks ago. 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 Pt enjoys family and keeping up with many generations of family. [place].
--- NOTE | 2016-07-23 17:25 | NUR ---
Heparin/Mobility/Pacer The pt began the shift on a heparin drip for PE protocol, and had a pTT >250. After a repeat pTT >150, the heparin was DC'ed. This afternoon, the heparin was restarted per MD at 30.6mL/hr (1.4 less than previous). The first pTT will be drawn at 2000, 3 hours after the heparin began. The pt was able to ambulate with a FWW to the BS numerous times today with little to no ankle pain. The pt is scheduled for pacer placement for SSS tomorrow around 1300.
--- NOTE | 2016-07-23 18:35 | PCM.PNMED ---
Subjective Date of Service Jul 23, 2016 Subjective overnight: Patient was transferred down to the hospital due to severe bradycardia as well as for heparin drip due to left sided pulmonary emboli. Today: Patient believes that her pulmonary emboli are likely due to her broken right ankle. The patient has never had a blood clot before. The patient admits to having a fluttering in her chest daily for the last several months and notes chest pain that occurs without flutter. The patient states that she has to get up slowly due to being old however she also mentions lightheadedness and vertigo. Patient states that she might also have bladder cancer given findings on CT with thickened bladder wall. Records indicate she has a planned outpatient cystoscopy. Exam Vital Signs Vital Sign - Last Date Time Temp Pulse Resp B/P Pulse Ox O2 Delivery O2 Flow Rate FiO2 07/23/16 03:10 36.4 42 20 133/77 96 Nasal Cannula 1.50 Intake and Output 07/22/16 07/22/16 07/23/16 Cumulative From/Thru 15:00 23:00 07:00 07/21/16 10:33 - 07/23/16 06:45 Intake Total 876 ml 0 ml 3659 ml Output Total 1050 ml 0 ml 1920 ml Balance -174 ml 0 ml 1739 ml Intake Oral 876 ml 0 ml 1476 ml IV Total 2183 ml Output Urine Total 1050 ml 0 ml 1920 ml # Bowel Movements 0 0 0 Exam Gen.: Elderly alert female lying in no acute distress in bed Eyes: Pupils equal round and reactive to light, anicteric sclera, noninjected conjunctiva HENT: Normocephalic atraumatic, moist mucous membranes, no central cyanosis, no cobblestoning mucosa clear oropharynx Neck: Supple, trachea midline, no noted JVD Cardiovascular: Regular rate and rhythm, S1 and S2 noted, no S3 or S4, notable single PVC, no murmurs rubs or gallops Lungs: Clear to auscultation bilaterally no coarse breath sounds noted no wheezing or rhonchi Abdomen: Normal active bowel sounds, soft, nontender, nondistended Extremities: Walking boot on right leg, no pain on palpation of the right gastroc, pulses intact at radial bilaterally and dorsalis pedis on the left, no cyanosis or clubbing noted Neuro: No focal neurologic deficits, patient moves all extremities Psych: Normal mood and affect Skin: Warm and dry, likely open comedone on the right medial scapula, no surrounding erythema IVs and Medications Medications Reviewed: Medications were reviewed in detail Lab and Diagnostics Result Diagram: 07/22/16 0630 07/22/16 0530 X-Rays, CTs and MRIs CT BRAIN WITHOUT CONTRAST ([id number]) IMPRESSION: 1. Sinusitis. 2. Volume loss and small vessel ischemic disease. 3. No acute intracranial abnormality. Dictated by: Matthew Marsh M.D. on 07/21/2016 at 11:36 Approved by: Matthew Marsh M.D. on 07/21/2016 at 11:38 Additional Diagnostics Echocardiogram Report Interpretation Summary The left ventricle is normal in size. Left ventricular systolic function is normal without focal wall motion abnormalities. The ejection fraction is estimated to be 65-70%. The right ventricle is mildly dilated. Right ventricular systolic function is at the lower limits of normal. Right ventricular systolic pressure is estimated to be 22 mmHg plus the clinically estimated CVP which cannot be estimated on this exam. The interatrial septum is intact with no evidence for an atrial septal defect. Reading Physician:PM ECHO (06/07/2016) EF 65-70% IMPRESSION: Normal adult echo w/o obvious cause for pt syncope. There is mild mitral, tricuspid, and pulmonic regurgitation. No interval change between the study and the prior study. hypotension Carotid Doppler (06/06/2016) IMPRESSION: Mild arthrosclerotic plaque in both bulbs No hemodynamically significant stenosis Dx: UTI (06/06/2016) CT Bladder (indicated-hematuria) (03/18/16) IMPRESSION: lateral wall thickening suspicious for urothelial malignancy Stress Test (2014) KIRTI scan (03/22/15) No reversible ischemic changes Assessment & Plan Florence Mercado is an 81 year old female presented with recurrent syncopal episodes currently being treated for pulmonary emboli on a heparin drip as well as sick sinus syndrome with plans for pacer placement by cardiology. Hospital day 3 1 acute pulmonary embolus, present on admission, under evaluation - CT PE shows numerous left sided pulmonary emboli - ACS ruled out with multiple negative Trops - Patient is on a heparin drip given likely pacer placement - drug abuse worker to check for insurance coverage for the bigger try and given fall risk and requirement for reversibility in anticoagulation - Patient will likely require 6 months of anticoagulation depending on cause of emboli - appreciate cardiology consult. will f/u w/ recs 2 Acute syncope, present on admission, under evaluation - Likely secondary to severe bradycardia/cardiac dysrhythmia - Differential diagnosis also includes Vasovagal and orthostatic hypotension - She had extensive work up in recent past. - Limited Echo 07/22 is unremarkable with intact EF - Carotid Doppler (06/06/2016): "Mild arthrosclerotic plaque in both bulbs No hemodynamically significant stenosis" - further management as noted below 3 sick sinus syndrome, present on admission, under evaluation - Monitoring on telemetry shows bradycardia down to the 40s - History reveals chest flutter daily for several months - appreciate cardiology consult - recommendation is to proceed with permanent pacemaker implant. - will follow-up with cardiology recs 4 Diabetes mellitus type II, present on admission, stable - controlled with metformin - most recent hemoglobin A1c was 7.8%. - hold oral hypoglycemics given future pacer placement - cover with high dose correction scale lispro wall inpatient 5 Acute kidney injury, present on admission, resolved - Likely due to underlying dehydration - resolved with IVF 6 Acute lactic acidosis, present on admission, resolved - likely due to underlying dehydration - resolved with IVF 7 Hyperlipidemia, present on admission, stable - c/w Simvastatin 40 mg daily. 8 Hypothyroidism, present on admission, stable - Most recent TSH checked July 21, 2016 was normal. - c/w home dose Synthroid 9 Recent Ankle fracture. Present on admission, ongoing - c/w supportive care - PT consult - further f/u w/ Ortho as outpatient. 10 Reported history of transient ischemic accident, present on admission, resolved - not on ASA due to reported allergy 11 History of balloon angioplasty 20 years ago in [place], present on admission, stable - not on ASA due to reported allergy - c/w Simvastatin 40 mg daily Dispo: Patient will likely be inpatient for 2-3 more days given pacer placement with significant comorbidities including pulmonary embolus given possible complications with therapy. GI Prophylaxis: H2 stephen VTE Prophylaxis: Other (heparin drip) VTE Mechanical Devices: Intermittant Pneumatic CD Resuscitation Status: CPR: Attempt Resuscitation Time spent 35minutes Attending Statement The patient was seen and examined together with Dr. Guaman on 07/23/16 and I agree with the history, exam and plan as outlined in the note above. Alf Gallardo DO Jul 23, 2016 07:56 Sierra Moore DO Jul 24, 2016 16:45
[2016-07-24] VITALS (8 sets, daily range): BP systolic 127–156; BP diastolic 61–73; PULSE 51–60; RESP 16–22; O2SAT 94–100
[2016-07-24] MEDS ORDERED: 0.9% Sodium Chloride 1,000 ML IV PRN (06:00)
[2016-07-24] MEDS ORDERED: Vancomycin Inj 1,000 MG in IV Premix 1 EACH IV ONE (06:00)
[2016-07-24] MEDS: Insulin LISPRO 300 Unit/3 mL Inj SUBQ SCH ×4 (08:00→21:27)
[2016-07-24] MEDS: Sodium Chloride LOK Flush 10 mL Syringe IVFLUSH SCH ×3 (08:06→21:27)
[2016-07-24] MEDS: Pantoprazole 20 mg ER24 Tablet PO SCH (08:06)
[2016-07-24] MEDS: Brimonidine 0.1% 5 mL Ophthalmic Solution AFFECT_EYE SCH ×2 (08:06→21:25)
[2016-07-24] MEDS: 0.9% Sodium Chloride 1,000 ML IV SCH ×2 (08:26→18:06)
[2016-07-24 08:27] LABS: BASOPHILS % (AUTO) 0.1 % (0-3); EOSINOPHILS % (AUTO) 0.9 % (0-5); MONOCYTES % (AUTO) 4.9 % (4-12); Mean Corpuscular Hemoglobin 28.9 pg (27.0-35.0); Mean Corpuscular Volume 89.8 fL (81-100); NEUTROPHILS % (AUTO) 70.5 % (40-74); Platelet Count 139 bil/L (150-400)
[2016-07-24] MEDS ORDERED: OXYBUTYNIN CHLORIDE 15 MG PO SCH (08:30)
[2016-07-24] MEDS ORDERED: LEVOTHYROXINE 50 MCG PO SCH (08:30)
[2016-07-24 08:37] LABS: INR 1.14 ratio
[2016-07-24] MEDS ORDERED: Bupivacaine-MPF 0.5% 30 mL Inj ONE (14:26)
[2016-07-24] MEDS ORDERED: 0.9% Sodium Chloride 1,000 ML ONE ×2 (14:26→16:26)
[2016-07-24] MEDS ORDERED: 0.9% Sodium Chloride 250 ML ONE (14:26)
[2016-07-24] MEDS ORDERED: Vancomycin 1,000 mg Inj ONE (15:25)
--- NOTE | 2016-07-24 15:42 | NUR ---
Social Work Note: Readiness for Discharge Data& Assessment: SW met with pt at bedside to check in and assess for any unmet needs. Pt is going for pacemaker placement today. Pt requested DPOA/Advance Directive and POLST information. Paperwork provided. Pt confirmed plan to discharge home with ely BORGES. Pt denies any other needs at this time. SW to continue to follow. Plan: Anticipated discharge home via POV when medically ready with resume Home health services. Pt denies any other needs at this time. SW to continue to follow. DAMARIS Brower
--- NOTE | 2016-07-24 16:10 | NUR ---
Transfer to computer laboratory technician The pt left the unit at 1605 for the computer laboratory technician for a pacer placement. She left on the bed with two RN's. Vitals were WNL for this pt's baseline, and the pt left A&Ox3.
[2016-07-24] MEDS ORDERED: fentaNYL-PF 50 mCg/mL 2 mL Inj ONE ×2 (16:38→17:21)
--- NOTE | 2016-07-24 16:44 | PCM.PNMED ---
Subjective Date of Service Jul 24, 2016 Subjective Overnight: No acute events noted Today: Patient states that she had the nurse remove the blackhead on her back, and it feels better. The patient states that she is ready for her cardiac pacer today. She is hopeful that the fluttering in her chest will improve significantly. The patient continues to have some chest discomfort. Exam Vital Signs Vital Sign - Last Date Time Temp Pulse Resp B/P Pulse Ox O2 Delivery O2 Flow Rate FiO2 07/24/16 04:33 36.5 53 20 128/61 97 Nasal Cannula 2.00 Intake and Output 07/23/16 07/23/16 07/24/16 Cumulative From/Thru 15:00 23:00 07:00 07/21/16 10:33 - 07/24/16 04:55 Intake Total 2022 ml 2905 ml 8586 ml Output Total 950 ml 2870 ml Balance 1072 ml 2905 ml 5716 ml Intake Oral 600 ml 2076 ml IV Total 1422 ml 2905 ml 6510 ml Output Urine Total 950 ml 2870 ml # Bowel Movements 0 Exam Gen.: alert elderly female lying in no acute distress in bed Eyes: Pupils equal round and reactive to light, anicteric sclera, noninjected conjunctiva HENT: Normocephalic atraumatic, moist mucous membranes, no central cyanosis, no cobblestoning mucosa clear oropharynx Neck: Supple, trachea midline, no noted JVD Cardiovascular: Regular rate and rhythm, S1 and S2 noted, no S3 or S4, notable low PVC burden, no murmurs rubs or gallops Lungs: Clear to auscultation bilaterally no coarse breath sounds noted no wheezing or rhonchi Abdomen: Normal active bowel sounds, soft, nontender, nondistended Extremities: Walking boot on right leg, no pain on palpation of the right gastroc, pulses intact at radial bilaterally and dorsalis pedis on the left, no cyanosis or clubbing noted Neuro: No focal neurologic deficits, patient moves all extremities Psych: Normal mood and affect Skin: Warm and dry, resolved open comedone on the right medial scapula with large open pore no purulence or drainage, no surrounding erythema IVs and Medications Medications Reviewed: Medications were reviewed in detail Lab and Diagnostics Result Diagram: 07/23/16 0738 07/23/16 0738 X-Rays, CTs and MRIs CT BRAIN WITHOUT CONTRAST ([id number]) IMPRESSION: 1. Sinusitis. 2. Volume loss and small vessel ischemic disease. 3. No acute intracranial abnormality. Dictated by: Matthew Marsh M.D. on 07/21/2016 at 11:36 Approved by: Matthew Marsh M.D. on 07/21/2016 at 11:38 Additional Diagnostics Echocardiogram Report Interpretation Summary The left ventricle is normal in size. Left ventricular systolic function is normal without focal wall motion abnormalities. The ejection fraction is estimated to be 65-70%. The right ventricle is mildly dilated. Right ventricular systolic function is at the lower limits of normal. Right ventricular systolic pressure is estimated to be 22 mmHg plus the clinically estimated CVP which cannot be estimated on this exam. The interatrial septum is intact with no evidence for an atrial septal defect. Reading Physician:PM ECHO (06/07/2016) EF 65-70% IMPRESSION: Normal adult echo w/o obvious cause for pt syncope. There is mild mitral, tricuspid, and pulmonic regurgitation. No interval change between the study and the prior study. hypotension Carotid Doppler (06/06/2016) IMPRESSION: Mild arthrosclerotic plaque in both bulbs No hemodynamically significant stenosis Dx: UTI (06/06/2016) CT Bladder (indicated-hematuria) (03/18/16) IMPRESSION: lateral wall thickening suspicious for urothelial malignancy Stress Test (2014) KIRTI scan (03/22/15) No reversible ischemic changes Assessment & Plan Florence Mercado is an 81 year old female presented with recurrent syncopal episodes currently being treated for pulmonary emboli on a heparin drip as well as sick sinus syndrome with plans for pacer placement by cardiology. Hospital day 4 1 acute pulmonary embolus, present on admission, under evaluation - CT PE shows numerous left sided pulmonary emboli - ACS ruled out with multiple negative Trops - Patient is on a heparin drip 1 hour before pacer placement, will be converted to dabigatran 12 hours post pacer placemention - Patient will likely require 6 months of anticoagulation depending on cause of emboli - Order ultrasounds of the legs bilaterally checking for DVT given right leg immobilization - appreciate cardiology consult. will f/u w/ recs 2 Acute syncope, present on admission, under evaluation - Likely secondary to severe bradycardia/cardiac dysrhythmia - Differential diagnosis also includes Vasovagal and orthostatic hypotension - She had extensive work up in recent past. - Limited Echo 07/22 is unremarkable with intact EF - Carotid Doppler (06/06/2016): "Mild arthrosclerotic plaque in both bulbs No hemodynamically significant stenosis" - further management as noted below 3 sick sinus syndrome, present on admission, under evaluation - Monitoring on telemetry shows bradycardia down to the 30s and 40s - History reveals chest flutter daily for several months - appreciate cardiology consult - recommendation is to proceed with permanent pacemaker implant. - will follow-up with cardiology recs 4 Diabetes mellitus type II, present on admission, stable - controlled with metformin - most recent hemoglobin A1c was 7.8%. - hold oral hypoglycemics given future pacer placement - cover with high dose correction scale lispro wall inpatient 5 Acute kidney injury, present on admission, resolved - Likely due to underlying dehydration - resolved with IVF 6 Acute lactic acidosis, present on admission, resolved - likely due to underlying dehydration - resolved with IVF 7 Hyperlipidemia, present on admission, stable - c/w Simvastatin 40 mg daily. 8 Hypothyroidism, present on admission, stable - Most recent TSH checked July 21, 2016 was normal. - c/w home dose Synthroid 9 Recent Ankle fracture. Present on admission, ongoing - c/w supportive care - PT consult - further f/u w/ Ortho as outpatient. 10 Reported history of transient ischemic accident, present on admission, resolved - not on ASA due to reported allergy 11 History of balloon angioplasty 20 years ago in [place], present on admission, stable - not on ASA due to reported allergy - c/w Simvastatin 40 mg daily 12. History of glaucoma, present on admission, stable - Continue Lantus eyedrops - continue brimonidine eyedrops 13. History of overactive bladder, present on admission, stable - Continue outpatient oxybutynin Dispo: Patient will likely be inpatient for 1-2 more days given pacer placement with significant comorbidities including pulmonary embolus given possible complications with therapy. Pain Evaluation: Adequate Pain Control GI Prophylaxis: H2 stephen VTE Prophylaxis: Other (heparin drip prior to pacer will convert to per Taxol after 12 hours) VTE Mechanical Devices: Intermittant Pneumatic CD Resuscitation Status: CPR: Attempt Resuscitation Time spent 35 minutes Attending Statement The patient was seen and examined together with Dr. Guaman on 07/24/16 and I agree with the history, exam and plan as outlined in the note above. Alf Gallardo DO Jul 24, 2016 07:37 Sierra Moore DO Jul 24, 2016 16:44
--- NOTE | 2016-07-24 17:15 | NUR ---
Social Work Note: Continued Discharge Planning Per MD request, Script for Pradaxa ran for coverage information. Pt reports her preferred pharmacy is [facility] [place]. Pharmacy stated pt cost would be $3.00, but it would need to be ordered in advance. MD notified. MD requested the order be placed in anticipation of pt being discharged in 1-2 days. Pharmacy notified and placing the order. SW to continue to follow. DAMARIS Brower
[2016-07-24] MEDS ORDERED: Ondansetron 2 mg/mL 2 mL Inj IVPUSH PRN (18:10)
--- NOTE | 2016-07-24 18:41 | PROG NOTE ---
[address] [address] PROGRESS NOTE PATIENT: SERGIO BAUER : 1935 MR#: [id number] ADMIT: 07/21/2016 JOB ID: [id number] DATE: 07/24/2016 PROGRESS NOTE: The patient is a pleasant 81-year-old woman with a structurally normal heart and a longstanding history of recurrent syncope for which she has undergone an ischemic workup as well as echocardiography, failing to reveal alternate etiology. While being monitored, she has continued to have episodic bradycardia with heart rates down into the low 40s, high 30s. She denies any chest pain, pressure, or discomfort. Incidentally, she has also been diagnosed with bilateral small pulmonary emboli for which she is being anticoagulated. She has had at least one syncopal episode per month for the last few years. IMPRESSION/RECOMMENDATIONS: The patient is a pleasant 81-year-old woman with a structurally normal heart, newly diagnosed small pulmonary emboli on anticoagulation, who has recurrent syncope and documented bradycardia with heart rates down into the 30s and 40s. She has no culprit offending agents on board. I recommended dual-chamber pacemaker implantation. We discussed the risks and benefits in detail. Ultimately, she wishes to proceed. PLAN: Dual-chamber pacemaker implantation with subsequent resumption of anticoagulation for PEs. Thank you very much for allowing me to participate in the care of this patient. Please call with questions. I spent approximately 1 hour with this patient coordinating care and reviewing her chart. Greater than 50% of the time was spent on counseling.
--- NOTE | 2016-07-24 19:34 | DRSVH ---
PROCEDURE: X-RAY CHEST ONE VIEW, PORTABLE ([id number]) INDICATIONS: For new leads placed TECHNIQUE: One view of the chest was acquired. COMPARISON: [facility], CR, XR CHEST 1VW (PORTABLE), 07/21/2016, 10:54. FINDINGS: Surgical changes and devices: There is a new dual lead cardiac pacemaker. Lungs and pleura: No pleural effusions or pneumothorax. Lungs are clear. Mediastinum: Mediastinal contours appear normal. Heart size is normal. Bones and chest wall: No suspicious bony lesions. Overlying soft tissues appear unremarkable. IMPRESSION: Status post pacemaker placement. No pneumothorax. Dictated by: Jazmin Castro M.D. on 07/24/2016 at 19:32 Approved by: Jazmin Castro M.D. on 07/24/2016 at 19:32
--- NOTE | 2016-07-24 20:36 | OP ---
[address] [address] OPERATIVE REPORT PATIENT: SERGIO BAUER : 1935 MR#: [id number] ADMIT: 07/21/2016 JOB ID: [id number] DATE OF SURGERY: 07/24/2016 PREOPERATIVE DIAGNOSIS(ES): 1. Sick sinus syndrome. 2. Syncope. POSTOPERATIVE DIAGNOSIS(ES): 1. Sick sinus syndrome. 2. Syncope. PROCEDURES PERFORMED: 1. Dual-chamber pacemaker implantation. 2. Fluoroscopy. SURGEON: Beau Concepcion MD, electrophysiology. ENTERPRISE INTEGRATION ARCHITECT: Cj Cunningham PA-C. IMPLANTED DEVICES: 1. [employer] pulse generator, model [id number] serial #[id number]. 2. Right atrial lead [employer] 2088 TC 46 cm, serial #[id number]. 3. RV lead [employer] 2088 TC 52 cm, serial #[id number]. ANESTHESIA: Bolus dosing of Versed and fentanyl were used for an appropriate level of sedation. INDICATION: The patient is a pleasant 81-year-old woman with a structurally normal heart, syncope, and profound sinus bradycardia. After discussion of risks and benefits of pacemaker implantation for sick sinus syndrome, she opted to proceed. PROCEDURAL DESCRIPTION: Following informed consent, the patient was taken to the EP laboratory in a fasting, nonsedated state, where she was prepped and draped in usual sterile fashion. The left infraclavicular region was infiltrated with 40 cc of a 50/50 mixture of bupivacaine and lidocaine. Once adequate anesthesia was achieved, a 3 cm transverse incision was performed 2 cm below the costal. Dissection was carried down to the pectoralis fascia. A pocket was then fashioned using a combination of electrocautery and blunt dissection. Once adequate anesthesia had been achieved, access to the left axillary vein was gotten over the first rib twice with a micropuncture needle to deploy two 0.035, 3 mm J guidewires. Over the first of these, a 6-Monegasque tear-away sheath was advanced. Once the guidewire was removed, an active fixation lead was advanced to the RV outflow tract the RV apex. The lead was affixed in position using associated fixation screw to the external analyzer and demonstrated appropriately sensed R waves, impedance, capture threshold. Checked to 10 V and there was no evidence of diaphragmatic stimulation. Attention was now paid to the right atrial lead. Over the first rib we deployed a J guidewire and another 6-Monegasque tear-away sheath was advanced. Once the guidewire was removed, an active fixation was advanced to the right atrial appendage. It was affixed in position using associated active fixation screw and was connected to the external analyzer and demonstrated appropriately sensed P waves, impedance, and capture threshold was checked to 10 V and there was no evidence of diaphragmatic stimulation. Once the position and redundancy of the leads was confirmed with multiple fluoroscopic views, the leads were anchored to the prepectoralis fascia using their associated anchoring sleeves and two Ethibond sutures. The pocket was then copiously irrigated with antibiotic solution. It was reconnected to a generator system and the pocket was affixed to the floor of the pocket using 1-0 Ti-Cron suture. The incision was closed with running layers of absorbable suture. The wound was dressed with skin adhesive and a small dressing. At the end of procedure, the needle, sponge, and instrument counts were all correct. COMPLICATIONS: None. ESTIMATED BLOOD LOSS: Negligible. DEVICE MEASURED DATA: 1. Right atrial lead 2.1 mV, 380 ohms, 1 V at 0.4 msec. 2. RV lead greater than 12 mV, 600 ohms, 0.5 V at 0.4 msec. FINAL PARAMETERS: DDDR 60-130 beats per minute. IMPRESSION: Successful dual-chamber pacemaker implantation. PLAN: 1. Stat portable chest x-ray. 2. PA and lateral chest x-ray in the morning. 3. Device interrogation. 4. IV vancomycin through tomorrow. 5. Doxycycline x7 days. 6. Wound check in one week. ATTENDING STATEMENT: Beau Woodward MD, electrophysiology, was present for and has supervised/performed all aspects of this procedure.
[2016-07-25] VITALS (10 sets, daily range): BP systolic 125–160; BP diastolic 61–81; PULSE 58–70; RESP 16–18; O2SAT 93–98
[2016-07-25] MEDS ORDERED: Vancomycin Inj 1,000 MG in IV Premix 1 EACH IV ONE (04:00)
[2016-07-25] MEDS: 0.9% Sodium Chloride 1,000 ML IV SCH ×3 (04:06→21:37)
--- NOTE | 2016-07-25 05:06 | NUR ---
Pacer Site L chest dressing C/D/I throughout shift; slight sanguineous drainage. Ice pack applied for two hours at beginning of shift; precautions followed for 2hr bedrest and HOB >45 degrees. Pt compliant with interventions, no abduction of L upper extremity. Pt reported pain 6/10 x1 this shift; Tylenol administered for relief, pt reports mildly effective. 3L NC. SL with adequate PO intake. VSS. Tele paced 60s. Pt and family educated to outcomes of surgery and plan for PE management.
[2016-07-25 08:01] LABS: BASOPHILS % (AUTO) 0.1 % (0-3); EOSINOPHILS % (AUTO) 2.2 % (0-5); MONOCYTES % (AUTO) 9.1 % (4-12); Mean Corpuscular Hemoglobin 28.5 pg (27.0-35.0); Mean Corpuscular Volume 90.1 fL (81-100); NEUTROPHILS % (AUTO) 67.5 % (40-74); Platelet Count 173 bil/L (150-400)
[2016-07-25 08:18] LABS: INR 1.1 ratio
[2016-07-25 08:39] LABS: Magnesium 1.7 mg/dL (1.6-2.6); Phosphorus 3.8 mg/dL (2.5-4.9)
[2016-07-25] MEDS: Insulin LISPRO 300 Unit/3 mL Inj SUBQ SCH ×4 (09:22→21:36)
[2016-07-25] MEDS: Brimonidine 0.1% 5 mL Ophthalmic Solution AFFECT_EYE SCH ×2 (09:35→21:34)
[2016-07-25] MEDS: Pantoprazole 20 mg ER24 Tablet PO SCH (09:35)
[2016-07-25] MEDS: Dabigatran 150 mg Capsule PO SCH ×2 (09:37→21:35)
[2016-07-25] MEDS: Sodium Chloride LOK Flush 10 mL Syringe IVFLUSH SCH ×3 (09:39→21:36)
--- NOTE | 2016-07-25 10:08 | DRSVH ---
PROCEDURE: X-RAY CHEST, TWO VIEWS ([id number]) INDICATIONS: For new lead placement TECHNIQUE: 2 views of the chest were acquired. COMPARISON: [facility], CR, XR CHEST 1VW (PORTABLE), 07/24/2016, 18:47. FINDINGS: Surgical changes and devices: Stable positioning of dual lead left cardiac pacer. Lungs and pleura: Edema has diminished. No pneumothorax. Mediastinum: Mediastinal contours are normal. Heart size is normal. Bones and chest wall: No suspicious bony abnormalities. Soft tissues appear unremarkable. IMPRESSION: Diminishing edema. Dictated by: Louie Grijalva [facility] Interpreted: Christa Horvath MD on 07/25/2016 at 10:07 Transcribed by: JAYNA on 07/25/2016 at 10:07 Approved by: Christa Horvath MD, PhD on 07/25/2016 at 16:31
--- NOTE | 2016-07-25 11:53 | DRSVH ---
PROCEDURE: US VENOUS LEG DUPLEX BILATERAL INDICATIONS: immobile with new pulmonary emboli TECHNIQUE: Real-time imaging, as well as color and pulse Doppler interrogation, were performed of the deep veins of both legs from the inguinal ligament to the popliteal fossa. COMPARISON: None. FINDINGS: Right: There is non-occlusive filling defect in the popliteal vein suspicious for deep venous thrombo sis. Left: The deep veins are normally compressible, and free of intraluminal thrombus. Color and pulse D oppler demonstrate normal phasic intravascular flow. There is normal augmentation response to distal compression maneuver. IMPRESSION: Suspect nonocclusive DVT in the right popliteal vein. The result was given to Dr. Diego by window repairer on 07/25/2016 at 10:40 hours. Dictated by: Timothy Hernández M.D. on 07/25/2016 at 11:49 Approved by: Timothy Hernández M.D. on 07/25/2016 at 11:52
--- NOTE | 2016-07-25 15:11 | NUR ---
NWB status Patient informed staff this afternoon of NWB status from podiatry MD regarding R ankle fracture. Podiatry office was called and it was confirmed that patient is in fact non weightbearing to the R ankle. Patient bed rest. Up in wheelchair only. PT will re-evaluate tomorrow.
--- NOTE | 2016-07-25 15:36 | NUR ---
Gave access and faxed facesheet to [facility] per DIRECTOR OF PROMOTIONS
--- NOTE | 2016-07-25 15:45 | NUR ---
Social Work: Continued Discharge Planning D: Pt discussed in am rounds. Pt is not medically stable for discharge at this time. Anticipate pt to d/c tomorrow. BOTTOM TURNING LATHE TURNER spoke with bedside RN who states that the pt disclosed that she was made non-weightbearing on her Right Ankle after previous fracture. PT evaluation was completed with pt without this information with recommendation for home with HH. PT is coming to reassess the pt. BOTTOM TURNING LATHE TURNER met with pt and family at bedside. Pt is unable to transfer herself to a w/c due to non-weightbearing status and shoulder precautions after pacer placement. Pt believes that she will need a SNF at discharge. BOTTOM TURNING LATHE TURNER reviewed medical necessity and that PT evaluation would need to be completed. SNF CHOICE LIST PROVIDED. Preference is for [facility] with [facility] as an alternate. [facility] will provide referrals. EMR reviewed; pt made inpatient status on 07/23. Third midnight will be tonight. PPW on chart. PASSR Completed. A: Pt who will likely require SNF due to non-weight bearing status and ankle fracture along with shoulder/pacer precautions. P: Anticipate pt to discharge to SNF; [facility] and [facility] are reviewing. BOTTOM TURNING LATHE TURNER to continue to follow DAMARIS Lewis
[2016-07-25 17:54] LABS: APPEARANCE,URINE HAZY (CLEAR,HAZY); COLOR,URINE YELLOW (YELLOW); OCCULT BLOOD,URINE LARGE (NEGATIVE); PH,URINE 5.5 (5.0-8.0); UROBILINOGEN,URINE NORMAL (NORMAL)
--- NOTE | 2016-07-25 17:57 | PCM.PNMED ---
Subjective Date of Service Jul 25, 2016 Subjective overnight: No acute events post pacer placement, patient given Tylenol for pain overnight without further complaints. Today: The patient states that the fluttering in her chest has since resolved since pacer placement. 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 She would like to go over the pulsed form which was filled out today with both her and her daughter and is currently in the chart. The patient states that she is nonweightbearing which was confirmed by her orthopedist. The patient understands that she will likely need to be placed in rehabilitation given her limitations in mobility with both nonweightbearing on right leg and decreased mobility after pacer placement with left arm. Exam Vital Signs Vital Sign - Last Date Time Temp Pulse Resp B/P Pulse Ox O2 Delivery O2 Flow Rate FiO2 07/25/16 05:05 63 07/25/16 03:56 36.7 16 128/61 98 Nasal Cannula 1.00 Intake and Output 07/24/16 07/24/16 07/25/16 Cumulative From/Thru 15:00 23:00 07:00 07/21/16 10:33 - 07/25/16 06:46 Intake Total 0 ml 2423 ml 67779 ml Output Total 500 ml 400 ml 700 ml 4470 ml Balance -500 ml -400 ml 1723 ml 6539 ml Intake Oral 0 ml 836 ml 2912 ml IV Total 1587 ml 8097 ml Output Urine Total 500 ml 400 ml 700 ml 4470 ml # Bowel Movements 0 Exam Gen.: Elderly alert female lying in no acute distress in bed Eyes: Pupils equal round and reactive to light, anicteric sclera, noninjected conjunctiva HENT: Normocephalic atraumatic, moist mucous membranes, no central cyanosis, no cobblestoning mucosa clear oropharynx Neck: Supple, trachea midline, no noted JVD Cardiovascular: Regular rate and rhythm, S1 and S2 noted, no S3 or S4, notable single PVC, no murmurs rubs or gallops Lungs and chest: Clear to auscultation bilaterally no coarse breath sounds noted no wheezing or rhonchi, with notable horizontal incision approximately midclavicular line second intercostal space on the left consistent with new pacer placement without erythema, purulent drainage or fluctuance on palpation Abdomen: Normal active bowel sounds, soft, nontender, nondistended Extremities: Walking boot on right leg, no pain on palpation of the right gastroc, pulses intact at radial bilaterally and dorsalis pedis on the left, no cyanosis or clubbing noted Neuro: No focal neurologic deficits, patient moves all extremities Psych: Normal mood and affect Skin: Warm and dry, likely open comedone on the right medial scapula, no surrounding erythema IVs and Medications Medications Reviewed: Medications were reviewed in detail Lab and Diagnostics Result Diagram: 07/24/16 0700 07/24/16 0700 X-Rays, CTs and MRIs CT BRAIN WITHOUT CONTRAST ([id number]) IMPRESSION: 1. Sinusitis. 2. Volume loss and small vessel ischemic disease. 3. No acute intracranial abnormality. Dictated by: Matthew Marsh M.D. on 07/21/2016 at 11:36 Approved by: Matthew Marsh M.D. on 07/21/2016 at 11:38 Additional Diagnostics Echocardiogram Report Interpretation Summary The left ventricle is normal in size. Left ventricular systolic function is normal without focal wall motion abnormalities. The ejection fraction is estimated to be 65-70%. The right ventricle is mildly dilated. Right ventricular systolic function is at the lower limits of normal. Right ventricular systolic pressure is estimated to be 22 mmHg plus the clinically estimated CVP which cannot be estimated on this exam. The interatrial septum is intact with no evidence for an atrial septal defect. Reading Physician:PM US VENOUS LEG DUPLEX BILATERAL IMPRESSION: Suspect nonocclusive DVT in the right popliteal vein. The result was given to Dr. Gallardo by pre wave assembler on 07/25/2016 at 10:40 hours. Dictated by: Timothy Hernández M.D. on 07/25/2016 at 11:49 Approved by: Timothy Hernández M.D. on 07/25/2016 at 11:52 ECHO (06/07/2016) EF 65-70% IMPRESSION: Normal adult echo w/o obvious cause for pt syncope. There is mild mitral, tricuspid, and pulmonic regurgitation. No interval change between the study and the prior study. hypotension Carotid Doppler (06/06/2016) IMPRESSION: Mild arthrosclerotic plaque in both bulbs No hemodynamically significant stenosis Dx: UTI (06/06/2016) CT Bladder (indicated-hematuria) (03/18/16) IMPRESSION: lateral wall thickening suspicious for urothelial malignancy Stress Test (2014) KIRTI scan (03/22/15) No reversible ischemic changes Assessment & Plan Florence Mercado is an 81 year old female presented with recurrent syncopal episodes currently being treated for pulmonary emboli on a heparin drip as well as sick sinus syndrome with plans for pacer placement by cardiology. Hospital day 5 1 acute pulmonary embolus secondary to right popliteal deep vein thromboses, present on admission, under evaluation - CT PE shows numerous left sided pulmonary emboli - ACS ruled out with multiple negative Trops - heparin drip discontinued 1 hour before pacer placement on July 24 - Patient will require 6 months of anticoagulation, given cause being a DVT - Pradaxa 150mg BID given need for anticoagulation reversibility due to fall risk - Patient has remained on 1 L of oxygen via nasal cannula this will be attempted to titrated off of for preparation for discharge 2 Acute syncope, present on admission, under evaluation - Likely secondary to severe bradycardia/cardiac dysrhythmia/sick sinus syndrome - She had extensive work up in recent past. - Limited Echo 07/22 is unremarkable with intact EF - Carotid Doppler (06/06/2016): "Mild arthrosclerotic plaque in both bulbs No hemodynamically significant stenosis" - further management as noted below 3 sick sinus syndrome post pacemaker placement, present on admission, under evaluation - Monitoring on telemetry shows bradycardia down to the 30s and 40s - History reveals chest flutter daily for several months - Dual-chamber cardiac pacemaker placed on July 24 - Cardiology recommendations include doxycycline 100 daily for 7 days with wound check in 1 week - will follow-up with cardiology recs 4 Diabetes mellitus type II, present on admission, stable - controlled with metformin - most recent hemoglobin A1c was 7.8%. - hold oral hypoglycemics given future pacer placement - cover with high dose correction scale lispro wall inpatient 5 Acute kidney injury, present on admission, resolved - Likely due to underlying dehydration - resolved with IVF 6 Acute lactic acidosis, present on admission, resolved - likely due to underlying dehydration - resolved with IVF 7 Hyperlipidemia, present on admission, stable - c/w Simvastatin 40 mg daily. 8 Hypothyroidism, present on admission, stable - Most recent TSH checked July 21, 2016 was normal. - c/w home dose Synthroid 9 Recent Ankle fracture. Present on admission, ongoing - c/w supportive care - PT consult - further f/u w/ Ortho as outpatient. 10 Reported history of transient ischemic accident, present on admission, resolved - not on ASA due to reported allergy 11 History of balloon angioplasty 20 years ago in [place], present on admission, stable - not on ASA due to reported allergy - c/w Simvastatin 40 mg daily 12. History of glaucoma, present on admission, stable - Continue Lantus eyedrops - continue brimonidine eyedrops 13. History of overactive bladder, present on admission, stable - Continue outpatient oxybutynin Dispo: Patient will likely be inpatient for 1 more days given pacer placement with significant comorbidities including nonweightbearing on right leg and pulmonary embolus given possible complications with therapy. Pain Evaluation: Adequate Pain Control GI Prophylaxis: H2 stephen VTE Prophylaxis: Other (dabigotran) VTE Mechanical Devices: Intermittant Pneumatic CD Resuscitation Status: DNR/DNI:Do Not Resuscitate/Intubate Limited Interventions: BiPAP, Medications and IV Fluid Time spent 35 minutes Attending Statement The patient was seen and examined together with Dr. Guaman on 07/25/16 and I agree with the history, exam and plan as outlined in the note above. Alf Gallardo DO Jul 25, 2016 07:53 Sierra Moore DO Jul 26, 2016 18:36
--- NOTE | 2016-07-25 18:03 | PCM.ADCARE ---
Alf Gallardo DO 07/25/16 1803: Advance Care Planning Note Purpose of Encounter: Complete POLST form Parties in Attendance: Florence Camposjames patient Daniela Reeder durable healthcare power of staff attorney for patient Alf Paulina Bradford Decisional Capacity: Patient's capacity is currently not in question Subjective: The patient understands that she is coming to an age where she should begin advance care planning. She knows that she would like to be DNR/DNI. Objective: 81-year-old female alert and oriented 3 in no acute distress lying comfortably in a hospital bed, mentation clear with normal thought process and normal mood and affect Goals of Care Determinations: 1. The patient would like to remain independent. 2. The patient would like to maintain her current mental and physical functional capacity 3. The patient understands that she would like to be DNR/DNI with limited interventions 4. Patient is okay for antibiotics on a limited use for comfort only, blood products, BiPAP, temporary dialysis Plan: Patient still requires notarizing her daughter's legal right to durable healthcare power of staff attorney CODE STATUS: DNR/DNI Time Spent Adv.Care Planninminutes Adv. Care Plan Documenation: POLST in chart Sierra Moore DO 07/26/16 1847: Advance Care Planning Note Adv. Care Plan Documenation: The patient was seen and examined together with Dr. Guaman on 07/25/16 and I agree with the history, exam and plan as outlined in the note above. Alf Gallardo DO Jul 25, 2016 18:03 Sierra Moore DO Jul 26, 2016 18:47
[2016-07-25] MEDS ORDERED: Albuterol 2.5 mg/3 mL Inhalation Solution NEB ONE (21:30)
--- NOTE | 2016-07-25 22:01 | DRSVH ---
PROCEDURE: X-RAY CHEST ONE VIEW, PORTABLE ([id number]) INDICATIONS: SOB, cough, chest tightness TECHNIQUE: One view of the chest was acquired. COMPARISON: [facility], CR, XR CHEST 2VW, 07/25/2016, 6:52. FINDINGS: Surgical changes and devices: Left-sided pacer. Lungs and pleura: No pleural effusions or pneumothorax. Lungs are clear. Mediastinum: Mediastinal contours appear normal. Heart size is normal. Bones and chest wall: No suspicious bony lesions. Overlying soft tissues appear unremarkable. IMPRESSION: No acute process. Dictated by: Matthew Marsh M.D. on 07/25/2016 at 21:59 Approved by: Matthew Marsh M.D. on 07/25/2016 at 21:59
[2016-07-26 03:40] VITALS: BP 130/75; PULSE 60; RESP 18; O2SAT 96
[2016-07-26 03:40] LABS: BASOPHILS % (AUTO) 0.1 % (0-3); EOSINOPHILS % (AUTO) 2.8 % (0-5); MONOCYTES % (AUTO) 9.2 % (4-12); Mean Corpuscular Hemoglobin 28.5 pg (27.0-35.0); Mean Corpuscular Volume 89.1 fL (81-100); NEUTROPHILS % (AUTO) 64.1 % (40-74); Platelet Count 126 bil/L (150-400)
[2016-07-26 04:54] VITALS: PULSE 61
[2016-07-26 05:05] VITALS: PULSE 68
--- NOTE | 2016-07-26 05:38 | NUR ---
Polyuria Pt frequently requests bedpan for prolonged periods of time r/t urinary frequency. Pt reports having urologist appt on upcoming Friday for urinary abnormalities. Pacer site slightly swollen, pink, tender; minimal serous drainage. Sling in place. Pt bedrest. VSS. Tele paced 60s.
[2016-07-26 08:00] VITALS: PULSE 60
[2016-07-26 08:38] VITALS: BP 197/80; PULSE 76; RESP 22; O2SAT 97
[2016-07-26] MEDS: Pantoprazole 20 mg ER24 Tablet PO SCH (08:48)
[2016-07-26] MEDS: Sodium Chloride LOK Flush 10 mL Syringe IVFLUSH SCH (08:49)
[2016-07-26] MEDS: Brimonidine 0.1% 5 mL Ophthalmic Solution AFFECT_EYE SCH (08:49)
[2016-07-26] MEDS: Dabigatran 150 mg Capsule PO SCH (08:49)
[2016-07-26] MEDS: Insulin LISPRO 300 Unit/3 mL Inj SUBQ SCH ×2 (08:50→12:00)
[2016-07-26] MEDS: 0.9% Sodium Chloride 1,000 ML IV SCH (10:06)
--- NOTE | 2016-07-26 10:32 | NUR ---
Faxed referral to [facility] this is now patient preference per POWERHOUSE MECHANIC
--- NOTE | 2016-07-26 10:44 | NUR ---
Social Work: Discharge D: Pt discussed in am rounds. Pt is medically stable for discharge to SNF. Pt is non-weightbearing on R ankle and now has L shoulder precautions. Pt will not be able to transfer I and will require SNF for further rehab of R ankle. [employer] met with pt and family at bedside to confirm discharge plan. Pt has now changed her preference for [facility] and [facility]. [employer] requested [employer] fax clinicals for review. Pt expresses no other concerns about discharge. Pt was made inpatient on 07/23; third midnight was last night and now qualifies for to access her SNF benefit. A: Pt who will require SNF for further rehab post discharge P: Anticipate pt to discharge to SNF; [facility] are reviewing. [employer] to update pt and team when an accepting facility is located. DAMARIS Lewis Addendum: 07/26/16 at 1203 by PERRI DUNN [employer] spoke with Sejal at [facility]. [facility] can accept the pt today with Dr. Mar to follow. Doc-to-Doc required with Dr. Mar ([phone]). [employer] updated . finalizing orders now. Sejal is contacting their transportation to determine when pickup can occur. Addendum: 07/26/16 at 1206 by PERRI DUNN [facility] Transportation arranged between 2:30-3:00pm. Bedside RN and pt aware
[2016-07-26] MEDS ORDERED: DOXY100T2 PO (11:48)
[2016-07-26] MEDS ORDERED: DABI150C PO (11:48)
[2016-07-26 11:50] VITALS: BP 175/85; PULSE 60; RESP 20; O2SAT 97
--- NOTE | 2016-07-26 12:09 | PCM.DIMED ---
Alf Gallardo DO 07/26/16 1209: Discharge Instructions Date of Service Jul 26, 2016 Dates of Hospitalization Jul 21, 2016 at 13:56 Discharge Diagnosis Discharge Diagnosis 1 acute pulmonary embolus secondary to right popliteal deep vein thromboses 2 Acute syncope likely secondary to bradycardia/sick sinus syndrome 3 sick sinus syndrome post pacemaker placement 4 Diabetes mellitus type II 5 Acute kidney injury 6 Acute lactic acidosis 7 Hyperlipidemia 8 Hypothyroidism 9 Recent Ankle fracture 10 Reported history of transient ischemic accident 11 History of balloon angioplasty 20 years ago in [place] 12. History of glaucoma 13. History of overactive bladder Medication Instructions Please continue taking her regular home medications as prescribed. Given your recent pacemaker placement or bead supervisor like for you to take a low dose antibiotic for possible infection coverage. Please take the full course of this antibiotic. Doxycycline 100 mg daily for 7 days. You will need to take an oral anticoagulant dabigatran (Pradaxa) given your new diagnosis of pulmonary emboli's secondary to deep vein thromboses in her right leg. You must take this medication for at least the next 6 months. [facility] social workers have confirmed that this medication will be approved by your insurance and should be affordable. Pradaxa has the added benefit that is also reversible in the event that you have a major bleed. Please monitor for any signs of a serious bleed including excess fatigue and increased heart rate or worsening lower bruise on your abdomen. Please be evaluated anytime in the future if you are in an accident or a fall as any trauma puts you at increased risk for serious bleeding complications. Pradaxa (dabigatran) 150 mg taken twice a day for the next 6 months minimum Test Results US VENOUS LEG DUPLEX BILATERAL FINDINGS: IMPRESSION: Suspect nonocclusive DVT in the right popliteal vein. Dictated by: Timothy Hernández M.D. on 07/25/2016 at 11:49 CT ANGIO CHEST PULMONARY EMBOLISM IMPRESSION: 1. Filling defects in the left lower lobe lobar and segmental arteries consistent with pulmonary emboli. 2. Trace left pleural effusion. 3. Aberrant right subclavian artery. 4. A 1.7 cm indeterminate low-density nodule in spleen. Ultrasound might be obtained for further evaluation. 5. A trace amount of free fluid in the left upper quadrant. Dictated by: Timothy Hernández M.D. on 07/23/2016 at 8:59 Diet Heart Healthy, Diabetic Activity Other (as dictated by the rehabilitation facility, nonweightbearing on right leg until evaluated by physician) Call your provider Fever or Chills, Shortness of breath, Bleeding, Chest pain, Vomitting, Weakness (unilateral), Other (signs of serious bleeding including almost any trauma, worsening high heart rates or fatigue) Patient Instructions Please take the above anticoagulation medication and antibiotic as prescribed on top of your normal home medications. You should remain nonweightbearing on her right leg and avoid using your left arm above shoulder height for the next week. Follow-up plan Please follow-up with your bead supervisor for pacemaker incision site check 1 week after pacemaker placement. Please follow-up with your urologist appointment next week for evaluation of her bladder. Your daughter has informed us that this appointment has already been scheduled. Please follow-up with your orthopedic appointment next week for evaluation of her broken right leg. Your daughter has informed us that this appointment has already been scheduled. I have spoken with the [facility] facility in [place], and you will not need to be seen by your primary care physician next week as they have physicians on facility. However they will schedule you a follow-up appointment for after your discharge from this rehabilitation facility. Mid-level Provider (F9): Cj Cunningham PA-C Follow-up with Mid-level in: 1 week Sierra Moore DO 07/26/16 1839: Discharge Instructions Attending's Statement The patient was seen and examined together with Dr. Guaman on 07/26/16 and I agree with the history, exam and plan as outlined in the note above. Alf Gallardo DO Jul 26, 2016 12:09 Sierra Moore DO Jul 26, 2016 18:39
--- NOTE | 2016-07-26 12:27 | PCM.DC.MED ---
Discharge Summary Date of Service Jul 26, 2016 Dates of Hospitalization Date of Hospital Admission Jul 21, 2016 at 13:56 Date of Discharge: Jul 26, 2016 Providers: Admitting Physician: Ben Alfredo MD Primary Care Physician: Wellington Campos DO Attending Physician: Ben Alfredo MD Diagnosis at Time of Discharge Diagnosis at Time of Discharge 1 acute pulmonary embolus secondary to right popliteal deep vein thromboses 2 Acute syncope likely secondary to bradycardia/sick sinus syndrome 3 sick sinus syndrome post pacemaker placement 4 Diabetes mellitus type II 5 Acute kidney injury 6 Acute lactic acidosis 7 Hyperlipidemia 8 Hypothyroidism 9 Recent Ankle fracture 10 Reported history of transient ischemic accident 11 History of balloon angioplasty 20 years ago in [place] 12. History of glaucoma 13. History of overactive bladder Consultations cardiology Procedures XRay, CTs & MRIs CT BRAIN WITHOUT CONTRAST IMPRESSION: 1. Sinusitis. 2. Volume loss and small vessel ischemic disease. 3. No acute intracranial abnormality. Dictated by: Matthew Marsh M.D. on 07/21/2016 at 11:36 US VENOUS LEG DUPLEX BILATERAL FINDINGS: IMPRESSION: Suspect nonocclusive DVT in the right popliteal vein. Dictated by: Timothy Hernández M.D. on 07/25/2016 at 11:49 CT ANGIO CHEST PULMONARY EMBOLISM IMPRESSION: 1. Filling defects in the left lower lobe lobar and segmental arteries consistent with pulmonary emboli. 2. Trace left pleural effusion. 3. Aberrant right subclavian artery. 4. A 1.7 cm indeterminate low-density nodule in spleen. Ultrasound might be obtained for further evaluation. 5. A trace amount of free fluid in the left upper quadrant. Dictated by: Timothy Hernández M.D. on 07/23/2016 at 8:59 Cardiac Echo Impression Echocardiogram Report Interpretation Summary The left ventricle is normal in size. Left ventricular systolic function is normal without focal wall motion abnormalities. The ejection fraction is estimated to be 65-70%. The right ventricle is mildly dilated. Right ventricular systolic function is at the lower limits of normal. Right ventricular systolic pressure is estimated to be 22 mmHg plus the clinically estimated CVP which cannot be estimated on this exam. The interatrial septum is intact with no evidence for an atrial septal defect. Reading Physician:PM Invasive Procedures OPERATIVE REPORT IMPRESSION: Successful dual-chamber pacemaker implantation. PLAN: 1. Doxycycline x7 days. 2. Wound check in one week. <Electronically signed by Beau Concepcion MD> 07/25/16 0806 Other Diagnostics ECHO (06/07/2016) EF 65-70% IMPRESSION: Normal adult echo w/o obvious cause for pt syncope. There is mild mitral, tricuspid, and pulmonic regurgitation. No interval change between the study and the prior study. hypotension Carotid Doppler (06/06/2016) IMPRESSION: Mild arthrosclerotic plaque in both bulbs No hemodynamically significant stenosis Dx: UTI (06/06/2016) CT Bladder (indicated-hematuria) (03/18/16) IMPRESSION: lateral wall thickening suspicious for urothelial malignancy Stress Test (2014) KIRTI scan (03/22/15) No reversible ischemic changes Brief History 81 year old female with a history of diabetes mellitus, CAD, TIA, hypothyroidism presented to the ED after a syncopal episode that occurred just prior to arrival. As per EMS reports, the patient had a syncopal episode while on the toilet experiencing an episode of diarrhea. She had experienced a similar syncopal episode on 06/06 that resulted in a right ankle fracture. She states that she has approx. 1 syncopal episode per month. She recently completed a round of antibiotics for a UTI. She also complaints of nausea, lightheadedness, dizziness, SOB and diaphoresis. Patient denies complete LOC. She denies any chest pain, vomiting, abdominal pain or melena. Vital signs on arrival to ER were as follows: T: 36.3, HR: 57, RR: 15, BP: 117/46, SpO2: 99% on RA Hospital Course Florence Mercado is an 81 year old female presented with recurrent syncopal episodes currently being treated for pulmonary emboli on a heparin drip as well as sick sinus syndrome with plans for pacer placement by cardiology. Hospital day 5 1 acute pulmonary embolus secondary to right popliteal deep vein thromboses, present on admission, under evaluation - CT PE shows numerous left sided pulmonary emboli - ACS ruled out with multiple negative Trops - heparin drip discontinued 1 hour before pacer placement on July 24 - Patient will require 6 months of anticoagulation, given cause being a DVT - Pradaxa 150mg BID given need for anticoagulation reversibility due to fall risk - Patient has remained on 1 L of oxygen via nasal cannula this will be attempted to titrated off of for preparation for discharge 2 Acute syncope, present on admission, under evaluation - Likely secondary to severe bradycardia/cardiac dysrhythmia/sick sinus syndrome - She had extensive work up in recent past. - Limited Echo 07/22 is unremarkable with intact EF - Carotid Doppler (06/06/2016): "Mild arthrosclerotic plaque in both bulbs No hemodynamically significant stenosis" - further management as noted below 3 sick sinus syndrome post pacemaker placement, present on admission, under evaluation - Monitoring on telemetry shows bradycardia down to the 30s and 40s - History reveals chest flutter daily for several months - Dual-chamber cardiac pacemaker placed on July 24 - Cardiology recommendations include doxycycline 100 daily for 7 days with wound check in 1 week - will follow-up with cardiology recs 4 Diabetes mellitus type II, present on admission, stable - controlled with metformin - most recent hemoglobin A1c was 7.8%. - hold oral hypoglycemics given future pacer placement - cover with high dose correction scale lispro wall inpatient 5 Acute kidney injury, present on admission, resolved - Likely due to underlying dehydration - resolved with IVF 6 Acute lactic acidosis, present on admission, resolved - likely due to underlying dehydration - resolved with IVF 7 Hyperlipidemia, present on admission, stable - c/w Simvastatin 40 mg daily. 8 Hypothyroidism, present on admission, stable - Most recent TSH checked July 21, 2016 was normal. - c/w home dose Synthroid 9 Recent Ankle fracture. Present on admission, ongoing - c/w supportive care - PT consult - further f/u w/ Ortho as outpatient. 10 Reported history of transient ischemic accident, present on admission, resolved - not on ASA due to reported allergy 11 History of balloon angioplasty 20 years ago in [place], present on admission, stable - not on ASA due to reported allergy - c/w Simvastatin 40 mg daily 12. History of glaucoma, present on admission, stable - Continue Lantus eyedrops - continue brimonidine eyedrops 13. History of overactive bladder, present on admission, stable - Continue outpatient oxybutynin Dispo: The patient [facility] [place]. A doctor to doctor handoff through phone call was performed without issue. Exam Vital Signs (Last) Date Time Temp Pulse Resp B/P Pulse Ox O2 Delivery O2 Flow Rate FiO2 07/26/16 11:50 36.6 60 20 175/85 97 Room Air 07/25/16 17:21 1.00 Exam Gen.: Elderly alert female lying in no acute distress in bed Eyes: Pupils equal round and reactive to light, anicteric sclera, noninjected conjunctiva HENT: Normocephalic atraumatic, moist mucous membranes, no central cyanosis, no cobblestoning mucosa clear oropharynx Neck: Supple, trachea midline, no noted JVD Cardiovascular: Regular rate and rhythm, S1 and S2 noted, no S3 or S4, notable single PVC, no murmurs rubs or gallops Lungs and chest: Clear to auscultation bilaterally no coarse breath sounds noted no wheezing or rhonchi, with notable horizontal incision approximately midclavicular line second intercostal space on the left consistent with new pacer placement without erythema, purulent drainage or fluctuance on palpation Abdomen: Normal active bowel sounds, soft, nontender, nondistended Extremities: No dose discoloration or swelling of right leg, no pain on palpation of the right gastroc, pulses intact at radial bilaterally and dorsalis pedis bilaterally, no cyanosis or clubbing noted Neuro: No focal neurologic deficits, patient moves all extremities Psych: Normal mood and affect Skin: Warm and dry Test 07/21/16 11:09 07/22/16 07:40 07/23/16 07:38 07/25/16 07:40 D-Dimer 2.6mg/L (<0.50) Thyroid Stimulating Hormone (TSH) 1.460uIU/mL (0.450-4.500) Lactic Acid Level 1.8mmol/L (0.4-2.0) Troponin T < 0.010ug/L (0.0-0.011) Prothrombin Time 11.8sec (8.1-12.5) Prothromb Time International Ratio 1.10ratio Activated Partial Thromboplast Time 27.1sec (22.8-33.0) Phosphorus Level 3.8mg/dL (2.5-4.9) Magnesium Level 1.7mg/dL (1.6-2.6) Test 07/25/16 17:16 07/26/16 03:20 Urine Color Yellow (YELLOW) Urine Appearance Hazy (CLEAR,HAZY) Urine pH 5.5 (5.0-8.0) Urine Specific [place] 1.020 (1.003-1.035) Urine Protein 30mg/dL (NEG,TRACE) Urine Glucose (UA) Negativemg/dL (NEGATIVE) Urine Ketones Negativemg/dL (NEGATIVE) Urine Occult Blood Large (NEGATIVE) Urine Nitrite Negative (NEGATIVE) Urine Bilirubin Negative (NEGATIVE) Urine Urobilinogen Normalmg/dL (NORMAL) Urine Leukocyte Esterase Moderate (NEGATIVE) Urine RBC 11-50/hpf (0-2) Urine WBC 6-10/hpf (0-5) Urine Epithelial Cells None/hpf (NONE-MOD) Urine Crystals None seen (NONE SEEN) Urine Bacteria None/hpf (NONE-FEW) Urine Hyaline Casts None/lpf (NONE) Urine Granular Casts None seen (NONE SEEN) Urine Waxy Casts None seen (NONE SEEN) Urine Red Blood Cell Casts None seen (NONE SEEN) Urine White Blood Cell Casts None seen (NONE SEEN) Urine Mucus None seen (None Seen) Urine Trichomonas None seen (NONE SEEN) Urine Yeast None (NONE SEEN) Urinalysis Comment None Urine Culture Reflexed Indicated White Blood Count 7.2th/mm3 (3.8-10.1) Red Blood Count 3.58mil/mm3 (3.90-5.20) Hemoglobin 10.2g/dL (12.0-15.6) Hematocrit 31.9% (35.0-46.0) Mean Corpuscular Volume 89.1fL (81-100) Mean Corpuscular Hemoglobin 28.5pg (27.0-35.0) Mean Corpuscular Hemoglobin Concent 32.0% (32.0-37.0) Red Cell Distribution Width 15.3% (12.3-15.4) Platelet Count 126bil/L (150-400) Neutrophils (%) (Auto) 64.1% (40-74) Lymphocytes (%) (Auto) 23.5% (14-46) Monocytes (%) (Auto) 9.2% (4-12) Eosinophils (%) (Auto) 2.8% (0-5) Basophils (%) (Auto) 0.1% (0-3) Sodium Level 138mEq/L (134-144) Potassium Level 3.8mEq/L (3.5-5.2) Chloride Level 105mEq/L (97-108) Carbon Dioxide Level 20mmol/L (18-29) Blood Urea Nitrogen 20mg/dL (8-27) Creatinine 0.93mg/dL (0.57-1.00) Estimat Glomerular Filtration Rate 83mL/min (>59) Glucose Level 174mg/dL (60-99) Calcium Level 9.0mg/dL (8.5-10.1) Total Bilirubin 0.4mg/dL (0.0-1.2) Aspartate Amino Transf (AST/SGOT) 13U/L (0-50) Alanine Aminotransferase (ALT/SGPT) 13U/L (0-32) Alkaline Phosphatase 47U/L (25-165) Total Protein 5.2g/dL (6.4-8.4) Albumin 2.9g/dL (3.4-5.0) Procalcitonin 0.08ng/mL (0.00-0.08) Microbiology Results Microbiology CULTURE URINE Final 07/24/16 Organism 1 MIXED UROGENITAL RODOLFO U COLONY COUNT/QUANTITY 50,000-100,000 CFU/ml Discharge Medications Discharge Medications Brimonidine Tartrate (Alphagan P) 5 Ml Drops 5 ML OP BID (Reported) Dabigatran Etexilate Mesylate (Pradaxa) 150 Mg Capsule 150 MG PO BID Prescribed by: JER CARRILLO DO Doxycycline Hyclate (Doxycycline Hyclate) 100 Mg Tablet 100 MG PO DAILY Prescribed by: JER CARRILLO DO Hydrochlorothiazide (Hydrochlorothiazide) 25 Mg Tablet 25 MG PO DAILY (Reported ) Latanoprost (Latanoprost) 2.5 Ml Drops 1 GTT LEFT_EYE HS (Reported) Levothyroxine (Tirosint) 50 Mcg Capsule 50 MCG PO DAILY (Reported) Metformin (Metformin) 500 Mg Tablet 500 MG PO BID (Reported) Oxybutynin Chloride ER (Oxybutynin Chloride ER) 15 Mg Tab.er.24 15 MG PO DAILY ( Reported) Potassium Gluconate (Potassium) 99 Mg Tablet Unknown Dose PO DAILY (Reported) Simvastatin (Simvastatin) 40 Mg Tablet 40 MG PO HS (Reported) As needed Nitroglycerin SL (Nitroglycerin SL) 0.4 Mg Tab.subl 0.4 MG SL Q5MIN PRN PRN For Chest Pain (Reported) Miscellaneous Medications Cholecalciferol (Vitamin D3) (Vitamin D3) 1,000 Unit Tab.chew 2,000 UNIT PO ( Reported) Additional med instructions Please continue taking her regular home medications as prescribed. Given your recent pacemaker placement or photo lab specialist like for you to take a low dose antibiotic for possible infection coverage. Please take the full course of this antibiotic. Doxycycline 100 mg daily for 7 days. You will need to take an oral anticoagulant dabigatran (Pradaxa) given your new diagnosis of pulmonary emboli's secondary to deep vein thromboses in her right leg. You must take this medication for at least the next 6 months. [facility] social workers have confirmed that this medication will be approved by your insurance and should be affordable. Pradaxa has the added benefit that is also reversible in the event that you have a major bleed. Please monitor for any signs of a serious bleed including excess fatigue and increased heart rate or worsening lower bruise on your abdomen. Please be evaluated anytime in the future if you are in an accident or a fall as any trauma puts you at increased risk for serious bleeding complications. Pradaxa (dabigatran) 150 mg taken twice a day for the next 6 months minimum Followup Plan Disposition: [facility] facility in [place] Follow-up plan Please follow-up with your photo lab specialist for pacemaker incision site check 1 week after pacemaker placement. Please follow-up with your urologist appointment next week for evaluation of her bladder. Your daughter has informed us that this appointment has already been scheduled. Please follow-up with your orthopedic appointment next week for evaluation of her broken right leg. Your daughter has informed us that this appointment has already been scheduled. I have spoken with the accepting [facility]iary facility in [place], and you will not need to be seen by your primary care physician Dr. Campos next week as the SNF/rehabilitation facility has physicians on site. However they will schedule you a follow-up appointment for after your discharge from this rehabilitation facility. Discharge Diet: Heart Healthy, Diabetic Discharge Activity: Other (as dictated by the rehabilitation facility, nonweightbearing on right leg until evaluated by physician) Patient Instructions Please take the above anticoagulation medication and antibiotic as prescribed on top of your normal home medications. You should remain nonweightbearing on your right leg and avoid using your left arm above shoulder height for the next week. Follow-up with PCP in: 1 week Mid-level Provider: Cj Cunningham PA-C Follow-up with Mid-level in: 1 week Time spent greater than 35 minutes Attending Statement The patient was seen and examined together with Dr. Guaman on 07/26/16 and I agree with the history, exam and plan as outlined in the note above. copies to: Wellington Campos Nicholas K DO Jul 26, 2016 12:10 Sierra Moore DO Jul 26, 2016 18:42
--- NOTE | 2016-07-26 12:30 | NUR ---
Spoke with Sejal in admission at [facility] and they can accept patient today with to follow. They will provide transport between 230-3PM, Sejal called and spoke with ORDER ENTRY TECHNICIAN about this. Addendum: 07/26/16 at 1306 by SHIREEN COPPOLA Faxed orders to Sejal at [facility],copy placed in chart and ORDER ENTRY TECHNICIAN updated
--- NOTE | 2016-07-26 14:51 | NUR ---
Discharge Patient s/p pacemaker placement. Tele SR in the 70-80s. SPO2 high 90s on RA. Denies pain/discomfort. Patient non weight bearing on r leg due to previous ankle fx. Patient continent and uses bedpan with minimal assistance. Report given to [facility] RN. Patient left unit via WC and transferred to [facility] via their transport vehicle.
--- NOTE | 2016-07-26 15:22 | PCM.PNMED ---
Subjective Date of Service Jul 26, 2016 Subjective overnight: No acute events overnight Today: Patient understands the plan will be to discharge to [facility] facility in [place]. Her daughter is already scheduled appointments next week with the barrel bung remover and dumper/orthopedic doctor she has been seen by the past. Patient also has an appointment with her urologist next week. The patient understands she will need to be on anticoagulation for the next 6 months. She has no questions at this time. Exam Vital Signs Vital Sign - Last Date Time Temp Pulse Resp B/P Pulse Ox O2 Delivery O2 Flow Rate FiO2 07/26/16 05:05 68 07/26/16 03:40 36.6 18 130/75 96 Room Air 07/25/16 17:21 1.00 Intake and Output 07/25/16 07/25/16 07/26/16 Cumulative From/Thru 15:00 23:00 07:00 07/21/16 10:33 - 07/26/16 04:54 Intake Total 1137 ml 200 ml 81699 ml Output Total 1500 ml 775 ml 6745 ml Balance -363 ml -575 ml 5601 ml Intake Oral 1137 ml 200 ml 4249 ml IV Total 8097 ml Output Urine Total 1500 ml 775 ml 6745 ml # Bowel Movements 0 Exam Gen.: Elderly alert female lying in no acute distress in bed Eyes: Pupils equal round and reactive to light, anicteric sclera, noninjected conjunctiva HENT: Normocephalic atraumatic, moist mucous membranes, no central cyanosis, no cobblestoning mucosa clear oropharynx Neck: Supple, trachea midline, no noted JVD Cardiovascular: Regular rate and rhythm, S1 and S2 noted, no S3 or S4, notable single PVC, no murmurs rubs or gallops Lungs and chest: Clear to auscultation bilaterally no coarse breath sounds noted no wheezing or rhonchi, with notable horizontal incision approximately midclavicular line second intercostal space on the left consistent with new pacer placement without erythema, purulent drainage or fluctuance on palpation Abdomen: Normal active bowel sounds, soft, nontender, nondistended Extremities: No dose discoloration or swelling of right leg, no pain on palpation of the right gastroc, pulses intact at radial bilaterally and dorsalis pedis bilaterally, no cyanosis or clubbing noted Neuro: No focal neurologic deficits, patient moves all extremities Psych: Normal mood and affect Skin: Warm and dry Lab and Diagnostics Result Diagram: 07/26/16 0320 07/26/16 0320 X-Rays, CTs and MRIs CT BRAIN WITHOUT CONTRAST ([id number]) IMPRESSION: 1. Sinusitis. 2. Volume loss and small vessel ischemic disease. 3. No acute intracranial abnormality. Dictated by: Matthew Marsh M.D. on 07/21/2016 at 11:36 Approved by: Matthew Marsh M.D. on 07/21/2016 at 11:38 Additional Diagnostics Echocardiogram Report Interpretation Summary The left ventricle is normal in size. Left ventricular systolic function is normal without focal wall motion abnormalities. The ejection fraction is estimated to be 65-70%. The right ventricle is mildly dilated. Right ventricular systolic function is at the lower limits of normal. Right ventricular systolic pressure is estimated to be 22 mmHg plus the clinically estimated CVP which cannot be estimated on this exam. The interatrial septum is intact with no evidence for an atrial septal defect. Reading Physician:PM US VENOUS LEG DUPLEX BILATERAL IMPRESSION: Suspect nonocclusive DVT in the right popliteal vein. The result was given to Dr. Gallardo by coil winding supervisor on 07/25/2016 at 10:40 hours. Dictated by: Timothy Hernández M.D. on 07/25/2016 at 11:49 Approved by: Timothy Hernández M.D. on 07/25/2016 at 11:52 ECHO (06/07/2016) EF 65-70% IMPRESSION: Normal adult echo w/o obvious cause for pt syncope. There is mild mitral, tricuspid, and pulmonic regurgitation. No interval change between the study and the prior study. hypotension Carotid Doppler (06/06/2016) IMPRESSION: Mild arthrosclerotic plaque in both bulbs No hemodynamically significant stenosis Dx: UTI (06/06/2016) CT Bladder (indicated-hematuria) (03/18/16) IMPRESSION: lateral wall thickening suspicious for urothelial malignancy Stress Test (2014) KIRTI scan (03/22/15) No reversible ischemic changes Assessment & Plan Florence Mercado is an 81 year old female presented with recurrent syncopal episodes currently being treated for pulmonary emboli on a heparin drip as well as sick sinus syndrome with plans for pacer placement by cardiology. Hospital day 5 1 acute pulmonary embolus secondary to right popliteal deep vein thromboses, present on admission, under evaluation - CT PE shows numerous left sided pulmonary emboli - ACS ruled out with multiple negative Trops - heparin drip discontinued 1 hour before pacer placement on July 24 - Patient will require 6 months of anticoagulation, given cause being a DVT - Pradaxa 150mg BID given need for anticoagulation reversibility due to fall risk - Patient has remained on 1 L of oxygen via nasal cannula this will be attempted to titrated off of for preparation for discharge 2 Acute syncope, present on admission, under evaluation - Likely secondary to severe bradycardia/cardiac dysrhythmia/sick sinus syndrome - She had extensive work up in recent past. - Limited Echo 07/22 is unremarkable with intact EF - Carotid Doppler (06/06/2016): "Mild arthrosclerotic plaque in both bulbs No hemodynamically significant stenosis" - further management as noted below 3 sick sinus syndrome post pacemaker placement, present on admission, under evaluation - Monitoring on telemetry shows bradycardia down to the 30s and 40s - History reveals chest flutter daily for several months - Dual-chamber cardiac pacemaker placed on July 24 - Cardiology recommendations include doxycycline 100 daily for 7 days with wound check in 1 week - will follow-up with cardiology recs 4 Diabetes mellitus type II, present on admission, stable - controlled with metformin - most recent hemoglobin A1c was 7.8%. - hold oral hypoglycemics given future pacer placement - cover with high dose correction scale lispro wall inpatient 5 Acute kidney injury, present on admission, resolved - Likely due to underlying dehydration - resolved with IVF 6 Acute lactic acidosis, present on admission, resolved - likely due to underlying dehydration - resolved with IVF 7 Hyperlipidemia, present on admission, stable - c/w Simvastatin 40 mg daily. 8 Hypothyroidism, present on admission, stable - Most recent TSH checked July 21, 2016 was normal. - c/w home dose Synthroid 9 Recent Ankle fracture. Present on admission, ongoing - c/w supportive care - PT consult - further f/u w/ Ortho as outpatient. 10 Reported history of transient ischemic accident, present on admission, resolved - not on ASA due to reported allergy 11 History of balloon angioplasty 20 years ago in [place], present on admission, stable - not on ASA due to reported allergy - c/w Simvastatin 40 mg daily 12. History of glaucoma, present on admission, stable - Continue Lantus eyedrops - continue brimonidine eyedrops 13. History of overactive bladder, present on admission, stable - Continue outpatient oxybutynin Dispo: Patient will be discharged today to [facility] in [place]. A doctor to doctor handoff was performed without issue. GI Prophylaxis: H2 stephen VTE Prophylaxis: Other (dabigotran) VTE Mechanical Devices: Intermittant Pneumatic CD Resuscitation Status: DNR/DNI:Do Not Resuscitate/Intubate Limited Interventions: BiPAP, Medications and IV Fluid Alf Gallardo DO Jul 26, 2016 08:03 Sierra Moore DO Jul 26, 2016 18:39
== END 2016-07-26 14:40 | DRG 242 ==
LOC: SED 10:15 → EDBD 10:15 → MPC 13:56 → OBSVTOIN 13:56 → MPC 14:35 → PCC 07-23 02:52
PROVIDERS: ADMIT Internal Medicine; ATTEND Internal Medicine
PROC: 0JH606Z Insertion of Pacemaker, Dual Chamber into Chest Subcutaneous Tissue and Fascia, Open Approach (ICD-10-PCS; principal; 2016-07-24)
PROC: 02H63JZ Insertion of Pacemaker Lead into Right Atrium, Percutaneous Approach (ICD-10-PCS; 2016-07-24)
PROC: 02HK3JZ Insertion of Pacemaker Lead into Right Ventricle, Percutaneous Approach (ICD-10-PCS; 2016-07-24)
DX: I49.5 Sick sinus syndrome (principal); I26.99 Other pulmonary embolism without acute cor pulmonale; N17.9 Acute kidney failure, unspecified; E87.2 Acidosis; I82.431 Acute embolism and thrombosis of right popliteal vein; E86.0 Dehydration; E11.9 Type 2 diabetes mellitus without complications; E78.5 Hyperlipidemia, unspecified; E03.9 Hypothyroidism, unspecified; Z86.73 Personal history of transient ischemic attack (TIA), and cerebral infarction without residual deficits; I25.10 Atherosclerotic heart disease of native coronary artery without angina pectoris; S82.891D Other fracture of right lower leg, subsequent encounter for closed fracture with routine healing; Z79.84 Long term (current) use of oral hypoglycemic drugs; H40.9 Unspecified glaucoma; N32.81 Overactive bladder; R55 Syncope and collapse